=== PATIENT | male | born 1975 | race Caucasian/White ===

== ENCOUNTER 2016-12-07 10:38 | Emergency (ER) | payer SELFPAY ==
[~2016-12-07] VITALS: Ht 188 cm; Wt 172.3 kg
[~2016-12-07 10:38] MED LIST: ATV1 PO; CPR500 PO; LCTX PO; LISI-725 PO; METO25TA3 PO; MTR500 PO
[2016-12-07 10:51] VITALS: TEMP 37; Ht 188 cm; Wt 172.3 kg
[2016-12-07] MEDS ORDERED: BUSP5TAB59 PO (11:13)
[2016-12-07] MEDS ORDERED: METO1TAB69 PO (11:13)
[2016-12-07] MEDS ORDERED: LOSA1TAB PO (11:13)
[2016-12-07] MEDS ORDERED: MTR/600 PO (11:13)
[2016-12-07] MEDS ORDERED: PRLSR20 PO (11:13)
[2016-12-07] MEDS ORDERED: AMLO-110 PO (11:13)
[2016-12-07 12:28] LABS: URINE APPEARANCE CLEAR (CLEAR); URINE BILIRUBIN NEG (NEG); URINE COLOR YELLOW; URINE NITRITE NEG (NEG); URINE SPECIFIC GRAVITY 1.011 (1.000-1.030); UROBILINOGEN NEG (NEG); ZZUR CULT IF INDIC CLEAN CATCH NO
[2016-12-07 12:31] LABS: HEMATOCRIT 47.3 % (42-52); MEAN CELL VOLUME 84.3 fL (80-100); MEAN CORPUSCULAR HEMOGLOBIN 29.6 pg (25-34); MEAN CORPUSCULAR HGB CONC 35.1 g/dl (32-36); MEAN PLATELET VOLUME 10.4 fL (7.4-10.4); PLATELET COUNT 221 K/uL (130-400); RED BLOOD COUNT 5.61 M/uL (4.7-6.1); WHITE BLOOD COUNT 6.61 K/uL (4.8-10.8)
[2016-12-07 12:35] LABS: MANUAL MICROSCOPIC REQUIRED? NO; REVIEW REQ? NO
[2016-12-07 12:51] LABS: ALT/SGPT 36 U/L (12-78); BLOOD UREA NITROGEN 7 mg/dl (7-18); BUN/CREATININE RATIO 6.1 (10-20); CALCIUM 9.3 mg/dl (8.5-10.1); CARBON DIOXIDE 27 mmol/L (21-32); CHLORIDE 107 mmol/L (98-107); GLUCOSE 103 mg/dl (70-99); POTASSIUM 3.6 mmol/L (3.5-5.1); SODIUM 141 mmol/L (136-145)
[2016-12-07 12:56] LABS: ALKALINE PHOSPHATASE 109 U/L (45-117); AST/SGOT 22 U/L (15-37)
--- NOTE | 2016-12-07 15:12 | EMERGENCY ROOM VISIT NOTE ---
History Report prepared by Song: Tony Aguilar Under the Supervision of: Dr. Nicanor Hunt M.D. First contact with patient: 11:26 Chief Complaint: OTHER COMPLAINT Stated Complaint: FAST HEARTRATE/DIGESTIVE , ANXIETY Nursing Triage Summary: "I have had a racing heart, diarrhea, acid reflux, abdominal pain, and am gassy , this has been going on for a week. I have anxiety but I think this is different." Denies CP or dyspnea. History of Present Illness The patient is a 41 year old male who presents to the Emergency Room with complaints of intermittent episodes of heart palpitations beginning last week. He also complains of shakiness, and chills along with his palpitations. He denies breathing rapidly during the episodes. The patient feels that his symptoms may be related to anxiety. He was previously on Ativan for anxiety, but was switched to BuSpar about a month ago. He denies any leg pain. The patient states that he has been having occasional "burning" pain in his upper abdomen recently. He also complains of occasional diarrhea and frequent gas passing. He takes Omeprazole which often improves his GI symptoms. The patient has a history of a cholecystectomy occurring about five years ago and states that he has had these GI symptoms intermittently ever since. He notes that he has not been eating well recently. Source of History: patient Onset: Last week Quality: other (heart palpitations) Timing: intermittent Associated Symptoms: + chills, + abdominal pain ("burning" upper), + diarrhea (occasional) Note: The patient also complains of shakiness. He denies any leg pain. Review of Systems All systems have been listed, reviewed, and are negative other than those previously mentioned. Please see Additional Medical History Sheet. Past Medical & Surgical Medical Problems: (1) Anxiety (2) Diverticula of colon Family History No pertinent family history stated. Social History Smoking Status: Never Smoker Housing Status: lives with family Occupation Status: employed Current/Historical Medications Scheduled Amlodipine (Norvasc), 5 MG PO DAILY Buspirone Hcl (Buspirone Hcl), 5 MG PO BID Ibuprofen (Ibuprofen), 600 MG PO UD Losartan Potassium (Cozaar), 25 MG PO DAILY Metoprolol Succ (Toprol Xl) (Toprol-Xl ), 100 MG PO DAILY Omeprazole (Prilosec), 20 MG PO DAILY Allergies Coded Allergies: Prednisone (Unverified Allergy, Severe, INCREASED HEART RATE,ANXIETY, 12/07) Sulfa Antibiotics (Unverified Allergy, Severe, INCREASED HEARTRATE/ STOMACH SICKNESS, 12/07/16) Citalopram (Unverified Allergy, Mild, UNK, 12/07/16) No Known Allergies (Unverified , UNKNOWN, 01/06/09) Physical Exam Vital Signs Date Time Temp Pulse Resp B/P (MAP) Pulse Ox O2 Delivery O2 Flow Rate FiO2 12/07/16 15:39 63 20 146/93 95 12/07/16 13:18 63 20 151/90 95 Room Air 12/07/16 12:24 87 12/07/16 11:39 84 20 149/99 96 Room Air 12/07/16 10:51 37.0 93 22 201/114 97 Room Air Physical Exam GENERAL: Patient awake, alert, oriented x 3. Patient follows commands. Patient does not appear toxic. Patient is adequately hydrated and well- nourished. SKIN: No erythema, pallor, cyanosis or rash HEENT: Normal head, pupils equal, reactive to light and accommodation. Slight injection of the left sclera. Ears normal. Oral cavity and posterior pharynx appear normal. Neck: Without adenopathy, no neck vein distention. LUNGS: Clear to auscultation. No wheezes, no rales, no rhonchi. HEART: No murmurs. No gallops. No rubs ABDOMEN: Obese. No masses, no rebound, no hepatomegaly or splenomegaly. EXTREMITIES: No signs of trauma. No pedal or pretibial edema. No calf or thigh tenderness. NEUROLOGIC: Cranial nerves II-XII within normal limits. No gross motor sensory function deficits. Medical Decision & Procedures Laboratory Results 12/07/16 12:10 12/07/16 12:10 Test 12/07/16 12:10 Red Blood Count 5.61 M/uL (4.7-6.1) Mean Corpuscular Volume 84.3 fL (80-100) Mean Corpuscular Hemoglobin 29.6 pg (25-34) Mean Corpuscular Hemoglobin Concent 35.1 g/dl (32-36) RDW Standard Deviation 40.0 fL (36.4-46.3) RDW Coefficient of Variation 13.0 % (11.5-14.5) Mean Platelet Volume 10.4 fL (7.4-10.4) Urine Color YELLOW Urine Appearance CLEAR (CLEAR) Urine pH 8.0 (4.5-7.5) Urine Specific [place] 1.011 (1.000-1.030) Urine Protein NEG (NEG) Urine Glucose (UA) NEG (NEG) Urine Ketones NEG (NEG) Urine Occult Blood NEG (NEG) Urine Nitrite NEG (NEG) Urine Bilirubin NEG (NEG) Urine Urobilinogen NEG (NEG) Urine Leukocyte Esterase NEG (NEG) Anion Gap 7.0 mmol/L (3-11) Est Creatinine Clear Calc Drug Dose 149.3 ml/min Estimated GFR () 96.8 Estimated GFR (Non- 83.5 BUN/Creatinine Ratio 6.1 (10-20) Calcium Level 9.3 mg/dl (8.5-10.1) Total Bilirubin 1.0 mg/dl (0.2-1) Aspartate Amino Transf (AST/SGOT) 22 U/L (15-37) Alanine Aminotransferase (ALT/SGPT) 36 U/L (12-78) Alkaline Phosphatase 109 U/L (45-117) Troponin I < 0.015 ng/ml (0-0.045) Total Protein 8.3 gm/dl (6.4-8.2) Albumin 4.1 gm/dl (3.4-5.0) Globulin 4.2 gm/dl (2.5-4.0) Albumin/Globulin Ratio 1.0 (0.9-2) Laboratory results as stated above per my review. ECG Indication: abdominal pain Rate (beats per minute): 93 Rhythm: sinus bradycardia Findings: no acute ischemic change, no ectopy, other (Normal axis. ) ED Course 1142: Past medical records reviewed. The patient was evaluated in room C5. A complete history and physical examination was performed. 1503: Upon reevaluation, the patient appeared to have improvement of his symptoms. I discussed today's findings with him. He verbalized agreement of the treatment plan. The patient was discharged home. Medical Decision Nurses notes reviewed. Medical history sheet reviewed. Differential diagnosis includes but is not limited to: anxiety, metabolic disorder, arrhythmia, and diverticulitis. Multiple labs were obtained. Please see above. The patient was observed here in the ED for approximately 3 hours and felt significantly better. He received no additional medication. The patient does have an underlying history of diverticulitis. He currently has no diarrhea. He does not have an acute abdomen or significant tenderness at this time. Anxiety is a significant portion of the patient's problem. The patient will double up on his omeprazole but will need to follow-up with his family physician and possibly GI for colonoscopy. Medication Reconcilliation Current Medication List: was personally reviewed by me Blood Pressure Screening Patient's blood pressure: Elevated blood pressure Blood pressure disposition: Referred to PCP Impression Primary Impression: Spasm of bowel Additional Impression: Anxiety Scribe Attestation The scribe's documentation has been prepared under my direction and personally reviewed by me in its entirety. I confirm that the note above accurately reflects all work, treatment, procedures, and medical decision making performed by me. Departure Information Dispostion Home / Self-Care Referrals No Doctor, Assigned (PCP) Patient Instructions My [facility] [employer] Additional Instructions Double your omeprazole dose daily. Follow-up with your family physician within the next 2 weeks and have your blood pressure rechecked. You may require a colonoscopy in the future. Keep a food diary for at least 1 week. Problem Qualifiers
[2016-12-07 15:39] VITALS: BP 146/93; PULSE 63; O2SAT 95
== END 2016-12-07 15:40 | disposition home or self-care (01) ==
LOC: C.EDB 10:39 → C.EDC 15:40
DX: K58.9 Irritable bowel syndrome, unspecified (principal); F41.9 Anxiety disorder, unspecified; K57.30 Diverticulosis of large intestine without perforation or abscess without bleeding

== ENCOUNTER 2016-12-19 09:55 | Emergency (ER) | payer OTHER ==
[~2016-12-19] VITALS: Ht 188 cm; Wt 166.6 kg
[~2016-12-19 09:55] MED LIST changes: +AMLO-110 PO; -ATV1 PO; +BUSP5TAB59 PO; -CPR500 PO; -LCTX PO; -LISI-725 PO; +LOSA1TAB PO; +METO1TAB69 PO; -METO25TA3 PO; +MTR/600 PO; -MTR500 PO; +PRLSR20 PO
[2016-12-19 09:58] VITALS: TEMP 37; Ht 188 cm; Wt 166.6 kg
[2016-12-19 10:10] VITALS: O2SAT 98
[2016-12-19] MEDS ORDERED: SODIUM CHLORIDE 0.9% 1000ML 1,000 ML IV STA (10:14)
[2016-12-19] MEDS ORDERED: FLUO20CA35 PO (10:21)
[2016-12-19] MEDS ORDERED: ZNTT/150 PO (10:21)
[2016-12-19] MEDS ORDERED: AMLO-110 PO (10:21)
[2016-12-19] MEDS ORDERED: METO1TAB69 PO (10:21)
[2016-12-19] MEDS ORDERED: LOSA1TAB38 PO (10:21)
--- NOTE | 2016-12-19 10:22 | EMERGENCY ROOM VISIT NOTE ---
History Report prepared by Song: Nyla Hicks Under the Supervision of: Dr. Jaun Wilson M.D. First contact with patient: 10:07 Chief Complaint: HYPERTENSION Stated Complaint: HIGH BLOOD PRESSURE, NAUSEA X 3 WEEKS History of Present Illness The patient is a 41 year old male who presents to the Emergency Room with complaints of persistent diarrhea for the past three weeks. He currently rates his discomfort as a 5/10 in severity. The patient states that for the past three weeks he has been experiencing diarrhea and gas. He states that over the past week he has lost 9 pounds and states that since October he has lost 40 pounds. The patient states that he was here two weeks ago for his symptoms. He states that since his illness began he has noticed an increase in his blood pressure. The patient states that for the past several months he has been on 100 mg of extended release Metoprolol. He states that he has been having 3-4 diarrhea bowel movements every day. The patient states that yesterday he had blood work and a stool sample taken yesterday at his PCP's office and states that he was placed on Ranitidine. He states that he has been feeling weak. Source of History: patient Onset: three weeks Position: other (global) Symptom Intensity: 5/10 Quality: other (diarrhea) Timing: other (persistent) Associated Symptoms: + weakness Note: Associated Symptoms: 40 pound weight loss, gas, increase in blood pressure Review of Systems See HPI for pertinent positives & negatives. A total of 10 systems reviewed and were otherwise negative. Past Medical & Surgical Medical Problems: (1) Anxiety (2) Diverticula of colon (3) Hypertension (4) Kidney stone Surgical Problems: (1) Hx of cholecystectomy (2) Previous back surgery Family History Diabetes mellitus Gallbladder disease Heart disease Hypertension Kidney disease Kidney stones Social History Smoking Status: Never Smoker Smokeless Tobacco Use: Yes Alcohol Use: none Marital Status: single Housing Status: lives with family Occupation Status: employed Current/Historical Medications Scheduled Amlodipine (Norvasc), 5 MG PO DAILY Amlodipine (Norvasc), 10 MG PO DAILY Fluoxetine (Prozac), 20 MG PO DAILY Losartan Potassium (Cozaar), 100 MG PO DAILY Metoprolol Succ (Toprol Xl) (Toprol-Xl ), 100 MG PO DAILY Ranitidine (Zantac), 150 MG PO BID Allergies Coded Allergies: Prednisone (Unverified Allergy, Severe, INCREASED HEART RATE,ANXIETY, ) Sulfa Antibiotics (Unverified Allergy, Severe, INCREASED HEARTRATE/ STOMACH SICKNESS, 12/19/16) Citalopram (Unverified Allergy, Mild, UNK, 12/19/16) Physical Exam Vital Signs Date Time Temp Pulse Resp B/P (MAP) Pulse Ox O2 Delivery O2 Flow Rate FiO2 12/19/16 12:47 59 20 159/94 94 12/19/16 12:22 53 12/19/16 11:09 73 18 184/104 98 Room Air 12/19/16 10:10 98 Room Air 12/19/16 10:08 81 12/19/16 09:58 37.0 83 18 211/143 97 Room Air Physical Exam GENERAL: Patient is a healthy-appearing well-nourished male HEAD: Normocephalic atraumatic EYES: Ocular movements intact pupils equal and react to light OROPHARYNX mucous membranes are moist no exudates present no erythema or edema present NECK: Supple no nuchal rigidity CHEST: Good equal expansion LUNGS: Clear and equal to auscultation CARDIAC: Normal S1 and S2 ABDOMEN: Soft nontender no guarding BACK: No CVA tenderness EXTREMITIES: No pain upon palpation normal muscle strength in all groups no clubbing cyanosis or edema NEURO: Patient is following commands and answering questions appropriately. Alert and oriented x3 Cranial Nerves 2-12 grossly intact Medical Decision & Procedures ER Provider Diagnostic Interpretation: Radiology results as stated below per my review and radiologist interpretation: HEAD CT NONCONTRAST CT DOSE: 729.78 mGycm HISTORY: Hypertension. TECHNIQUE: Multiaxial CT images of the head were performed without the use of intravenous contrast. Automated exposure control was utilized for this study. A dose lowering technique was utilized adhering to the principles of ALARA. Comparison: None. Findings: Subcentimeter retention cyst within the left maxillary sinus. The mastoid air cells are clear. The calvarium and skull base are intact. The ventricles and sulci are within normal limits. There is no mass, hematoma, midline shift, or acute infarct. Impression: No acute intracranial abnormality. Electronically signed by: Chaka Cordero M.D. 12/19/2016 11:13 AM Dictated Date/Time: 12/19/2016 11:06 AM CHEST ONE VIEW PORTABLE HISTORY: severe hypertension COMPARISON: Chest 01/06/2009. FINDINGS: A 6 mm nodular density within the base of the left lower lobe favors a calcified granuloma. The lungs are otherwise clear. No pleural effusions. No pneumothorax. The heart is normal in size. IMPRESSION: No acute process. Electronically signed by: Chaka Cordero M.D. 12/19/2016 10:59 AM Dictated Date/Time: 12/19/2016 10:[address] ABD/PELVIS IV CONTRAST ONLY CLINICAL HISTORY: Diffuse abdominal pain and diarrhea. COMPARISON STUDY: None. TECHNIQUE: Following the IV administration of 94 mL of Optiray-320, CT scan of the abdomen and pelvis was performed from the lung bases to the proximal femurs. Images are reviewed in the axial, sagittal, and coronal planes. IV contrast was administered without complication. A dose lowering technique was utilized adhering to the principles of ALARA. CT DOSE: 1390.79 mGycm FINDINGS: Lower chest: The heart is normal in size and configuration, without pericardial effusion. The lung bases and pleural spaces are clear. Liver: The contrast-enhanced liver is normal in size, contour, and attenuation. There is no intrahepatic biliary ductal dilatation. The hepatic veins and portal veins are patent. Gallbladder: Surgically absent Spleen: Normal in size and attenuation. Pancreas: Unremarkable. Adrenal glands: Unremarkable. Kidneys: There is symmetric renal cortical enhancement. The kidneys are normal in size without hydronephrosis. Bowel: There are no transition zones indicate bowel obstruction. There is no acute diverticulitis. The appendix appears normal. Peritoneum: There is no intraperitoneal free air or abdominal ascites. Vasculature: The abdominal aorta is normal in course and caliber. Adenopathy: None. Pelvic viscera: The bladder, and pelvic viscera are unremarkable. Skeletal structures: No destructive osseous lesions are seen. IMPRESSION: 1. No acute intra-abdominal or pelvic findings 2. No evidence of bowel obstruction. No evidence of free air 3. Normal appendix. No evidence of diverticulitis. Electronically signed by: Vito Baxter M.D. 12/19/2016 11:08 AM Dictated Date/Time: 12/19/2016 11:06 AM Laboratory Results 12/19/16 10:10 Red Blood Count 5.80, Mean Corpuscular Volume 84.5, Mean Corpuscular Hemoglobin 30.7, Mean Corpuscular Hemoglobin Concent 36.3, Mean Platelet Volume 10.8, Neutrophils (%) (Auto) 70.0, Lymphocytes (%) (Auto) 21.7, Monocytes (%) (Auto) 7.3, Eosinophils (%) (Auto) 0.6, Basophils (%) (Auto) 0.3, Neutrophils # (Auto) 4.99, Lymphocytes # (Auto) 1.55, Monocytes # (Auto) 0.52, Eosinophils # (Auto) 0.04, Basophils # (Auto) 0.02 12/19/16 10:10 Test 12/19/16 10:10 12/19/16 10:16 12/19/16 10:27 12/19/16 10:45 White Blood Count 7.13 K/uL (4.8-10.8) Red Blood Count 5.80 M/uL (4.7-6.1) Hemoglobin 17.8 g/dL (14.0-18.0) Hematocrit 49.0 % (42-52) Mean Corpuscular Volume 84.5 fL (80-100) Mean Corpuscular Hemoglobin 30.7 pg (25-34) Mean Corpuscular Hemoglobin Concent 36.3 g/dl (32-36) Platelet Count 243 K/uL (130-400) Mean Platelet Volume 10.8 fL (7.4-10.4) Neutrophils (%) (Auto) 70.0 % Lymphocytes (%) (Auto) 21.7 % Monocytes (%) (Auto) 7.3 % Eosinophils (%) (Auto) 0.6 % Basophils (%) (Auto) 0.3 % Neutrophils # (Auto) 4.99 K/uL (1.4-6.5) Lymphocytes # (Auto) 1.55 K/uL (1.2-3.4) Monocytes # (Auto) 0.52 K/uL (0.11-0.59) Eosinophils # (Auto) 0.04 K/uL (0-0.5) Basophils # (Auto) 0.02 K/uL (0-0.2) RDW Standard Deviation 39.7 fL (36.4-46.3) RDW Coefficient of Variation 13.0 % (11.5-14.5) Immature Granulocyte % (Auto) 0.1 % Immature Granulocyte # (Auto) 0.01 K/uL (0.00-0.02) Prothrombin Time 10.5 SECONDS (9.0-12.0) Prothromb Time International Ratio 1.0 (0.9-1.1) Activated Partial Thromboplast Time 29.0 SECONDS (21.0-31.0) Partial Thromboplastin Ratio 1.1 Est Creatinine Clear Calc Drug Dose 131.0 ml/min Estimated GFR () 84.6 Estimated GFR (Non- 73.0 BUN/Creatinine Ratio 6.6 (10-20) Calcium Level 9.2 mg/dl (8.5-10.1) Total Bilirubin 1.2 mg/dl (0.2-1) Direct Bilirubin 0.2 mg/dl (0-0.2) Aspartate Amino Transf (AST/SGOT) 32 U/L (15-37) Alanine Aminotransferase (ALT/SGPT) 51 U/L (12-78) Alkaline Phosphatase 118 U/L (45-117) Total Creatine Kinase 101 U/L (39-308) Creatine Kinase MB < 0.5 ng/ml (0.5-3.6) Troponin I < 0.015 ng/ml (0-0.045) Total Protein 8.6 gm/dl (6.4-8.2) Albumin 4.3 gm/dl (3.4-5.0) Lipase 104 U/L (73-393) Thyroid Stimulating Hormone (TSH) 0.657 uIu/ml (0.300-4.500) Creatine Kinase MB Ratio (0-3.0) Bedside Hemoglobin 17.3 g/dl (14.0-18.0) Bedside Hematocrit 51 % (42-52) Bedside Sodium 142 mEq/L (135-144) Bedside Potassium 3.7 mEq/L (3.3-5.0) Bedside Chloride 104 mEq/L (101-112) Bedside Total CO2 27 mEq/l (24-31) Anion Gap 16.0 mmol/L (16-25) Bedside Blood Urea Nitrogen 7 mg/dl (7-18) Bedside Creatinine 1.1 mg/dl (0.6-1.3) Bedside Glucose (other) 95 mg/dl (70-99) Bedside Ionized Calcium (Uziel) 1.20 mmol/l (1.12-1.32) Urine Color YELLOW Urine Appearance CLEAR (CLEAR) Urine pH 6.5 (4.5-7.5) Urine Specific [place] 1.014 (1.000-1.030) Urine Protein NEG (NEG) Urine Glucose (UA) NEG (NEG) Urine Ketones NEG (NEG) Urine Occult Blood TRACE (NEG) Urine Nitrite NEG (NEG) Urine Bilirubin NEG (NEG) Urine Urobilinogen NEG (NEG) Urine Leukocyte Esterase NEG (NEG) Urine WBC (Auto) 1-5 /hpf (0-5) Urine RBC (Auto) 0-4 /hpf (0-4) Urine Hyaline Casts (Auto) 0 /lpf (0-5) Urine Epithelial Cells (Auto) 0-5 /lpf (0-5) Urine Bacteria (Auto) NEG (NEG) Date/Time Source Procedure Growth Status 12/19/16 10:45 Stool C.difficile Toxin B Gene (PCR) - Final No C. difficile toxin B gene detected Complete Labs reviewed by ED physician. Medications Administered Medications (Trade) Dose Ordered Sig/Steve Route Start Time Stop Time Status Last Admin Dose Admin Sodium Chloride 1,000 ml @ 999 mls/hr Q1H1M STAT IV 12/19/16 10:14 12/19/16 11:14 DC 12/19/16 10:32 999 MLS/HR Potassium Chloride (Klor-Con M10) 40 meq NOW STAT PO 12/19/16 11:11 12/19/16 11:12 DC 12/19/16 11:29 40 MEQ Cholestyramine Resin (Questran Powder Light) 4 gm NOW STAT PO 12/19/16 12:17 12/19/16 12:18 DC 12/19/16 12:42 4 GM ECG Indication: other (hypertension) Rate (beats per minute): 80 Rhythm: normal sinus Findings: no acute ischemic change, no ectopy ED Course 1009: Past medical records reviewed. The patient was evaluated in room A11B. A complete history and physical examination was performed. 1014: Ordered Sodium Chloride 1000 ml @ 999 mls/hr IV. 1111: Ordered Potassium Chloride 40 meq PO. 1217: Ordered Cholestyramine Resin 4 gm PO. 1220: I reevaluated the patient and he is resting comfortably. I discussed the exam findings with him and I discussed the treatment plan. He verbalized complete understanding and agreement. He is ready to go home. Medical Decision Differential diagnosis: Etiologies such as benign hypertension, hypertensive emergency, cardiovascular pathology, pheochromocytoma, electrolyte abnormality, renal disease, endorgan damage, as well as others were entertained. This is a 41-year-old male who presents emergency department complaining of gastroenteritis symptoms and has been ongoing for 3 weeks. In addition the patient has an elevation in his blood pressure. Based on the multiple complaints, the patient was sent for CAT scan of the head as well as the abdomen pelvis. Both are within normal limits in the patient has normal CBC and renal profile. His blood pressure is elevated. I feel I can increase his amlodipine dose however I stressed the need for follow-up with gastroenterology. The patient was in the emergency department for a total of 4 hours however he was unable to provide a stool sample. Medication Reconcilliation Current Medication List: was personally reviewed by me Blood Pressure Screening Patient's blood pressure: Elevated blood pressure Blood pressure disposition: Referred to PCP Impression Primary Impression: Hypertension Additional Impression: Diarrhea Scribe Attestation The scribe's documentation has been prepared under my direction and personally reviewed by me in its entirety. I confirm that the note above accurately reflects all work, treatment, procedures, and medical decision making performed by me. Departure Information Dispostion Home / Self-Care Prescriptions Amlodipine (Norvasc) 10 Mg Tab 10 MG PO DAILY for 10 Days, #10 TAB Prov: Juan Wilson MD 12/19/16 Referrals No Doctor, Assigned (PCP) Daryl Souza, D.O. Forms HOME CARE DOCUMENTATION FORM, IMPORTANT VISIT INFORMATION, WORK / SCHOOL INSTRUCTIONS Patient Instructions ED Diarrhea Viral, ED Vomiting Diarrhea Nonspecific Ad, Hypertension Control, My [facility] Additional Instructions Follow up with Dr Zepeda's office You were found to have an elevated blood pressure today (>120 sytolic or >90 diastolic). Per medicare guidelines, you need to follow up with this blood pressure screening with your Primary Care Physician (PCP). For a new PCP call [phone]. You have been examined and treated today on an emergency basis only. This is not a substitute for, or an effort to provide, complete comprehensive medical care. It is impossible to recognize and treat all injuries or illnesses in a single emergency department visit. It is therefore important that you follow up closely with Dr Souza. Call as soon as possible for an appointment. Thank you for your time and consideration. I look forward to speaking with you again soon. Please don't hesitate to call us if you have any questions. Problem Qualifiers Primary Impression: Hypertension Hypertension type: unspecified Qualified Codes: I10 - Essential (primary) hypertension Additional Impression: Diarrhea Diarrhea type: unspecified type Qualified Codes: R19.7 - Diarrhea, unspecified
[2016-12-19] MEDS ORDERED: OPTIRAY 320 IV PRN (10:30)
[2016-12-19 10:37] LABS: BASO % 0.3 %; BASO ABS # 0.02 K/uL (0-0.2); COMPLETE YES; EOS % 0.6 %; IG% 0.1 %; LYMPH % 21.7 %; LYMPH ABS # 1.55 K/uL (1.2-3.4); MEAN CELL VOLUME 84.5 fL (80-100); MEAN CORPUSCULAR HEMOGLOBIN 30.7 pg (25-34); MEAN CORPUSCULAR HGB CONC 36.3 g/dl (32-36); MEAN PLATELET VOLUME 10.8 fL (7.4-10.4); MONO % 7.3 %; PLATELET COUNT 243 K/uL (130-400); WHITE BLOOD COUNT 7.13 K/uL (4.8-10.8)
[2016-12-19 10:41] LABS: ISTAT CREATININE 1.1 mg/dl (0.6-1.3); ISTAT HEMOGLOBIN 17.3 g/dl (14.0-18.0); ISTAT IONIZED CALCIUM 1.2 mmol/l (1.12-1.32)
[2016-12-19 10:46] LABS: PARTIAL THROMBOPLASTIN RATIO 1.1; PROTHROMBIN TIME (PATIENT) 10.5 SECONDS (9.0-12.0)
[2016-12-19 10:58] LABS: ALT/SGPT 51 U/L (12-78); AST/SGOT 32 U/L (15-37); BLOOD UREA NITROGEN 8 mg/dl (7-18); BUN/CREATININE RATIO 6.6 (10-20); CALCIUM 9.2 mg/dl (8.5-10.1); CARBON DIOXIDE 27 mmol/L (21-32); CHLORIDE 107 mmol/L (98-107); CREATININE 1.23 mg/dl (0.60-1.40); GLUCOSE 90 mg/dl (70-99); POTASSIUM 3.6 mmol/L (3.5-5.1); SODIUM 139 mmol/L (136-145)
--- NOTE | 2016-12-19 11:00 | DIAGNOSTIC IMAGING REPORT ---
CHEST ONE VIEW PORTABLE HISTORY: severe hypertension COMPARISON: Chest 01/06/2009. FINDINGS: A 6 mm nodular density within the base of the left lower lobe favors a calcified granuloma. The lungs are otherwise clear. No pleural effusions. No pneumothorax. The heart is normal in size. IMPRESSION: No acute process. Electronically signed by: Chaka Cordero M.D. 12/19/2016 10:59 AM Dictated Date/Time: 12/19/2016 10:57 AM
[2016-12-19 11:01] LABS: URINE APPEARANCE CLEAR (CLEAR); URINE BILIRUBIN NEG (NEG); URINE COLOR YELLOW; URINE EPITHELIAL CELL AUTO 0-5 /lpf (0-5); URINE NITRITE NEG (NEG); URINE PH 6.5 (4.5-7.5); URINE SPECIFIC GRAVITY 1.014 (1.000-1.030); UROBILINOGEN NEG (NEG)
[2016-12-19 11:03] LABS: MANUAL MICROSCOPIC REQUIRED? NO; REVIEW REQ? NO
[2016-12-19 11:06] LABS: ALKALINE PHOSPHATASE 118 U/L (45-117); THYROID STIMULATING HORMONE 0.657 uIu/ml (0.300-4.500)
--- NOTE | 2016-12-19 11:10 | DIAGNOSTIC IMAGING REPORT ---
CT ABD/PELVIS IV CONTRAST ONLY CLINICAL HISTORY: Diffuse abdominal pain and diarrhea. COMPARISON STUDY: None. TECHNIQUE: Following the IV administration of 94 mL of Optiray-320, CT scan of the abdomen and pelvis was performed from the lung bases to the proximal femurs. Images are reviewed in the axial, sagittal, and coronal planes. IV contrast was administered without complication. A dose lowering technique was utilized adhering to the principles of ALARA. CT DOSE: 1390.79 mGycm FINDINGS: Lower chest: The heart is normal in size and configuration, without pericardial effusion. The lung bases and pleural spaces are clear. Liver: The contrast-enhanced liver is normal in size, contour, and attenuation. There is no intrahepatic biliary ductal dilatation. The hepatic veins and portal veins are patent. Gallbladder: Surgically absent Spleen: Normal in size and attenuation. Pancreas: Unremarkable. Adrenal glands: Unremarkable. Kidneys: There is symmetric renal cortical enhancement. The kidneys are normal in size without hydronephrosis. Bowel: There are no transition zones indicate bowel obstruction. There is no acute diverticulitis. The appendix appears normal. Peritoneum: There is no intraperitoneal free air or abdominal ascites. Vasculature: The abdominal aorta is normal in course and caliber. Adenopathy: None. Pelvic viscera: The bladder, and pelvic viscera are unremarkable. Skeletal structures: No destructive osseous lesions are seen. IMPRESSION: 1. No acute intra-abdominal or pelvic findings 2. No evidence of bowel obstruction. No evidence of free air 3. Normal appendix. No evidence of diverticulitis. Electronically signed by: Vito Baxter M.D. 12/19/2016 11:08 AM Dictated Date/Time: 12/19/2016 11:06 AM
[2016-12-19] MEDS ORDERED: POTASSIUM CHLORIDE 10 MEQ TABCR PO STA (11:11)
--- NOTE | 2016-12-19 11:14 | DIAGNOSTIC IMAGING REPORT ---
HEAD CT NONCONTRAST CT DOSE: 729.78 mGycm HISTORY: Hypertension. TECHNIQUE: Multiaxial CT images of the head were performed without the use of intravenous contrast. Automated exposure control was utilized for this study. A dose lowering technique was utilized adhering to the principles of ALARA. Comparison: None. Findings: Subcentimeter retention cyst within the left maxillary sinus. The mastoid air cells are clear. The calvarium and skull base are intact. The ventricles and sulci are within normal limits. There is no mass, hematoma, midline shift, or acute infarct. Impression: No acute intracranial abnormality. Electronically signed by: Chaka Cordero M.D. 12/19/2016 11:13 AM Dictated Date/Time: 12/19/2016 11:06 AM
[2016-12-19] MEDS ORDERED: CHOLESTYRAMINE LIGHT 4 GM PKT PO STA (12:17)
[2016-12-19] MEDS ORDERED: AMLO-114 PO (12:19)
[2016-12-19 12:47] VITALS: BP 159/94; PULSE 59; O2SAT 94
[2016-12-23 13:17] LABS: NOROVIRUS RNA** TC 19098X NOT DETECTED; O&P GIARDIA AG NOT DETECTED (NOT DETECTED)
== END 2016-12-19 12:48 | disposition home or self-care (01) ==
LOC: C.EDB 09:56 → C.EDA 12:48
DX: I10 Essential (primary) hypertension (principal); R19.7 Diarrhea, unspecified; F41.9 Anxiety disorder, unspecified; Z87.442 Personal history of urinary calculi; Z90.49 Acquired absence of other specified parts of digestive tract; Z83.3 Family history of diabetes mellitus; Z82.49 Family history of ischemic heart disease and other diseases of the circulatory system; Z84.1 Family history of disorders of kidney and ureter; Z79.899 Other long term (current) drug therapy

== ENCOUNTER → 2016-12-31 | Day surgery (SDC) | payer OTHER ==
[2016-12-30 11:58] VITALS: Ht 188 cm; Wt 163.6 kg
[~2016-12-31] VITALS: Ht 188 cm; Wt 163.6 kg
[~2016-12-31] MED LIST changes: -AMLO-110 PO; +ATV/1 PO; -BUSP5TAB59 PO; +DICY10CA12 PO; +EpHEDrine SULFATE 50MG/5ML SYR ONE; +FENTANYL CITRATE INJ 50 MCG/1 ML 2 ML VIAL ONE; +HYDR12.55 PO; +LIDOCAINE HCL 2% 2 ML VIAL (20MG/ML) ONE; -LOSA1TAB PO; +LOSA1TAB38 PO; +METO100T44 PO; -METO1TAB69 PO; +MIDAZOLAM HCL 1 MG/ML 2ML VIAL ONE; -MTR/600 PO; -PRLSR20 PO; +PROPOFOL IV EMULSION 10 MG/ML 20 ML VIAL IV ONE; +SODIUM CHLORIDE 0.9% 500ML 500 ML IV ONE
--- NOTE | 2016-12-31 12:41 | Endo History and Physical ---
History & Physical Date of Service: Dec 31, 2016. Chief Complaint: reflux,chronic diarrhea Referring Physician: Dr. Daryl Souza History of Present Illness Patient with chronic diarrhea and dyspepsia, planned for EGD and colonoscopy. Past Surgical History Hx Cardiac Surgery: No Hx Internal Defibrillator: No Hx Pacemaker: No Hx Abdominal Surgery: Yes (KARAN) Hx of Implantable Prosthesis: No Hx Post-Op Nausea and Vomiting: No Hx Cancer Surgery: No Hx Thoracic Surgery: No Hx Orthopedic: Yes (LUMBAR FUSION) Hx Urinary Tract Surgery: No Family History Polyp, IBD Social History Smoking Status: Never Smoker Hx Substance Use: No Hx Alcohol Use: No Allergies Coded Allergies: Prednisone (Verified Allergy, Severe, INCREASED HEART RATE,ANXIETY, ) Sulfa Antibiotics (Verified Allergy, Severe, INCREASED HEARTRATE/STOMACH SICKNESS, 12/31/16) Citalopram (Verified Allergy, Mild, UNK, 12/31/16) Current Medications Reported Home Medications Medications Dose Route/Sig Max Daily Dose Days Date Category Ativan (Lorazepam) 1 Mg Tab 1 Mg PO Q6H 12/31/16 Reported Toprol-Xl (Metoprolol Succinate) 100 Mg Tabcr 100 Mg PO DAILY AT 1600 12/30/16 Reported Hydrochlorothiazide 12.5 Mg Tab 1 Tab PO DAILY AT 1600 90 12/30/16 Reported Dicyclomine Hcl 10 Mg Cap 1 Cap PO BID 30 12/30/16 Reported Cozaar (Losartan Potassium) 100 Mg Tab 100 Mg PO QAM 12/19/16 Reported Vital Signs Weight (Kilograms): 163.64 Height (Feet): 6 Height (Inches): 2 Date Time Temp Pulse Resp B/P (MAP) Pulse Ox O2 Delivery O2 Flow Rate FiO2 12/31/16 12:20 37.2 86 20 118/89 (99) 96 Room Air Physical Exam General Appearance: no apparent distress Respiratory/Chest: Auscultation: breath sounds normal Cardiovascular: Heart Auscultation: RRR Abdomen: Inspection & Palpation: soft, non-distended Assessment and Plan EGD and colonoscopy. patient was explained the risk and benefit and agreed.
--- NOTE | 2016-12-31 13:39 | GI REPORT ---
Procedure Date: 12/31/2016 12:20 PM Procedure: Upper GI endoscopy Indications: Dyspepsia, Heartburn, Suspected gastro-esophageal reflux disease Medicines: Sedation Required Anesthesia Staff Assistance Complications: No immediate complications. Estimated Blood Loss: Estimated blood loss: none. Procedure: Pre-Anesthesia Assessment: - Prior to the procedure, a History and Physical was performed, and patient medications and allergies were reviewed. The patient is competent. The risks and benefits of the procedure and the sedation options and risks were discussed with the patient. All questions were answered and informed consent was obtained. Patient identification and proposed procedure were verified by the physician and the nurse in the procedure room. Mental Status Examination: alert and oriented. Airway Examination: normal oropharyngeal airway and neck mobility. Respiratory Examination: clear to auscultation. CV Examination: normal. ASA Grade Assessment: II - A patient with mild systemic disease. After reviewing the risks and benefits, the patient was deemed in satisfactory condition to undergo the procedure. The anesthesia plan was to use monitored anesthesia care (MAC). Immediately prior to administration of medications, the patient was re-assessed for adequacy to receive sedatives. The heart rate, respiratory rate, oxygen saturations, blood pressure, adequacy of pulmonary ventilation, and response to care were monitored throughout the procedure. The physical status of the patient was re-assessed after the procedure. After obtaining informed consent, the endoscope was passed under direct vision. Throughout the procedure, the patient's blood pressure, pulse, and oxygen saturations were monitored continuously. The scope was introduced through the mouth, and advanced to the second part of duodenum. The upper GI endoscopy was accomplished without difficulty. The patient tolerated the procedure well. Findings: One tongue of salmon-colored mucosa was present. The maximum longitudinal extent of these esophageal mucosal changes was 2 cm in length. Biopsies were taken with a cold forceps for histology. Verification of patient identification for the specimen was done by the physician and nurse using the patient's name and date. Estimated blood loss was minimal. The entire examined stomach was normal. Biopsies were taken with a cold forceps for Helicobacter pylori testing. The duodenal bulb and 2nd part of the duodenum were normal. Biopsies were taken with a cold forceps for histology. One non-bleeding superficial duodenal ulcer was found in the duodenal bulb. The lesion was 5 mm in largest dimension. Biopsies were taken with a cold forceps for histology. Impression: - [place]-colored mucosa suspicious for short-segment Friedman's esophagus. Biopsied. - Normal stomach. Biopsied. - Normal duodenal bulb and 2nd part of the duodenum. Biopsied. - One non-bleeding superficial duodenal ulcer. Biopsied. Recommendation: - Discharge patient to home. - Await pathology results. - Follow an antireflux regimen. - Use Prilosec (omeprazole) 40 mg PO daily. - Repeat the upper endoscopy for surveillance based on pathology results. - Return to GI clinic as previously scheduled. Ricci An MD 12/31/2016 1:38:43 PM This report has been signed electronically. Note Initiated On: 12/31/2016 12:20 PM I attest to the content of the Intraoperative Record and orders documented therein, exceptions below
--- NOTE | 2016-12-31 13:42 | Anesthesiology Progress Note ---
Anesthesia Post Op Note Date & Time Dec 31, 2016 at 13:42 Vital Signs Pain Intensity: 0 Vital Signs Past 12 Hours Date Time Temp Pulse Resp B/P (MAP) Pulse Ox O2 Delivery O2 Flow Rate FiO2 12/31/16 12:20 37.2 86 20 118/89 (99) 96 Room Air Notes Mental Status: alert / awake / arousable, participated in evaluation Pt Amnestic to Procedure: Yes Nausea / Vomiting: adequately controlled Pain: adequately controlled Airway Patency, RR, SpO2: stable & adequate BP & HR: stable & adequate Hydration State: stable & adequate Anesthetic Complications: no major complications apparent
--- NOTE | 2016-12-31 13:44 | GI REPORT ---
Procedure Date: 12/31/2016 1:07 PM Procedure: Colonoscopy Indications: Chronic diarrhea Medicines: Monitored Anesthesia Care Complications: No immediate complications. Estimated Blood Loss: Estimated blood loss: none. Procedure: Pre-Anesthesia Assessment: - Prior to the procedure, a History and Physical was performed, and patient medications and allergies were reviewed. The patient is competent. The risks and benefits of the procedure and the sedation options and risks were discussed with the patient. All questions were answered and informed consent was obtained. Patient identification and proposed procedure were verified by the physician and the nurse in the procedure room. Mental Status Examination: alert and oriented. Airway Examination: normal oropharyngeal airway and neck mobility. Respiratory Examination: clear to auscultation. CV Examination: normal. ASA Grade Assessment: II - A patient with mild systemic disease. After reviewing the risks and benefits, the patient was deemed in satisfactory condition to undergo the procedure. The anesthesia plan was to use monitored anesthesia care (MAC). Immediately prior to administration of medications, the patient was re-assessed for adequacy to receive sedatives. The heart rate, respiratory rate, oxygen saturations, blood pressure, adequacy of pulmonary ventilation, and response to care were monitored throughout the procedure. The physical status of the patient was re-assessed after the procedure. After I obtained informed consent, the scope was passed under direct vision. Throughout the procedure, the patient's blood pressure, pulse, and oxygen saturations were monitored continuously. The scope was introduced through the anus and advanced to the terminal ileum. The colonoscopy was performed without difficulty. The patient tolerated the procedure well. The quality of the bowel preparation was good. Scope insertion time was 4 minutes. Scope withdrawal time was 10 minutes. The total duration of the procedure was 14 minutes. Findings: The perianal and digital rectal examinations were normal. The terminal ileum appeared normal. A 12 mm polyp was found in the recto-sigmoid colon. The polyp was sessile. The polyp was removed with a hot snare. Resection and retrieval were complete. Multiple small and large-mouthed diverticula were found from sigmoid to transverse colon. The colon (entire examined portion) appeared normal. Biopsies for histology were taken with a cold forceps from the right colon, left colon and rectum for evaluation of microscopic colitis. Verification of patient identification for the specimen was done by the physician and nurse using the patient's name and date. Estimated blood loss was minimal. Non-bleeding internal hemorrhoids were found during retroflexion. The hemorrhoids were small. Impression: - The examined portion of the ileum was normal. - One 12 mm polyp at the recto-sigmoid colon, removed with a hot snare. Resected and retrieved. - Diverticulosis from sigmoid to transverse colon. - The entire examined colon is otherwise normal. Biopsied. - Non-bleeding internal hemorrhoids. Recommendation: - Discharge patient to home. - Await pathology results. - Repeat colonoscopy in 3 years for surveillance based on pathology results. Ricci An MD 12/31/2016 1:43:59 PM This report has been signed electronically. Note Initiated On: 12/31/2016 1:07 PM I attest to the content of the Intraoperative Record and orders documented therein, exceptions below
--- NOTE | 2016-12-31 13:47 | Discharge Instructions ---
Endoscopy Patient Instructions Date / Procedure(s) Performed Dec 31, 2016. Colonoscopy, EGD Allergy Information Coded Allergies: Prednisone (Verified Allergy, Severe, INCREASED HEART RATE,ANXIETY, ) Sulfa Antibiotics (Verified Allergy, Severe, INCREASED HEARTRATE/STOMACH SICKNESS, 12/31/16) Citalopram (Verified Allergy, Mild, UNK, 12/31/16) Discharge Date / Findings Dec 31, 2016. - [place]-colored mucosa suspicious for short-segment Friedman's esophagus. Biopsied. - Normal stomach. Biopsied. - Normal duodenal bulb and 2nd part of the duodenum. Biopsied. - One non-bleeding superficial duodenal ulcer. Biopsied. - 12 mm polyp in rectosigmoid, resected. - Diverticulosis and hemorrhoids. Medication Instructions Reported Home Medications Medications Dose Route/Sig Max Daily Dose Days Date Category Ativan (Lorazepam) 1 Mg Tab 1 Mg PO Q6H 12/31/16 Reported Toprol-Xl (Metoprolol Succinate) 100 Mg Tabcr 100 Mg PO DAILY AT 1600 12/30/16 Reported Hydrochlorothiazide 12.5 Mg Tab 1 Tab PO DAILY AT 1600 90 12/30/16 Reported Dicyclomine Hcl 10 Mg Cap 1 Cap PO BID 30 12/30/16 Reported Cozaar (Losartan Potassium) 100 Mg Tab 100 Mg PO QAM 12/19/16 Reported Provider Instructions Activity Restrictions - No exercising or heavy lifting for 24 hours. - Do not drink alcohol the day of the procedure. - Do not drive a car or operate machinery until the day after the procedure. - Do not make any important decisions or sign important papers in 24 hours after the procedure. Following Day: - Return to full activity which may include returning to work/school. Diet Start your diet with liquids and light foods (jello, soup, juice, toast). Then eat your usual diet if not nauseated. Treatment For Common After Affects For mild abdominal pain, bloating, or excessive gas: - Rest - Eat lightly - Lie on right side Follow-Up Information - Follow pathology results. - Follow an antireflux regimen. - Use Prilosec (omeprazole) 40 mg PO daily. - Repeat the upper endoscopy for surveillance based on pathology results. - Repeat colonoscopy based on pathology result, likely in 3 years. - Avoid NSAIDs like Ibuprofen, Advil, Aleve, etc... - Follow-up with Dr. Daryl Souza as scheduled Anesthesia Information What You Should Know You have had a procedure that required some medicine to reduce anxiety and discomfort. This treatment is called moderate sedation. After receiving the treatment, you may be sleepy, but you will be able to breathe on your own. The effects of the treatment may last for several hours. Follow these instructions along with Activity/Diet recommendations noted above: * Do NOT do anything where dizziness or clumsiness would be dangerous. * Rest quietly at home today, then you can be up and about tomorrow. * Have a responsible person stay with you the rest of today. * You may have had an I.V. today. If so, you may take the dressing off later today. Recommendations Call your doctor if: * Trouble breathing * Continuous vomiting for more than 24 hours * Temperature above 101 degrees * Severe abdominal pain or bloating * Pain not relieved by pain medicine ordered * There is increased drainage or redness from any incision * A large amount of rectal bleeding greater than 2-3 tablespoons. (If you had a polyp/s removed or have hemorrhoids, a small amount of blood - from the rectum is to be expected.) * You have any unanswered questions or concerns. IN THE EVENT OF A SERIOUS EMERGENCY, GO TO THE NEAREST EMERGENCY ROOM Your discharge instructions were prepared by provider Ricci An. Patient Instructions Signature Page Bjorn Pickett Patient (or Guardian) Signature/Date: I have read and understand the instructions given to me by my caregivers. Caregiver/RN/Doctor Signature/Date: The above-named patient and/or guardian has received patient instructions on this date. + Original Patient Signature Page (only) stays with chart. Please make copy for patient.
[2016-12-31 14:02] VITALS: BP 142/77; PULSE 56; O2SAT 95
== END | disposition home or self-care (01) ==
LOC: C.GI 12:00
PROVIDERS: ATTEND Student in an Organized Health Care Education/Training Program
DX: K21.9 Gastro-esophageal reflux disease without esophagitis (principal); R19.7 Diarrhea, unspecified; K22.70 Barrett's esophagus without dysplasia; K29.80 Duodenitis without bleeding; K26.9 Duodenal ulcer, unspecified as acute or chronic, without hemorrhage or perforation; D12.5 Benign neoplasm of sigmoid colon; K64.8 Other hemorrhoids; R10.13 Epigastric pain; Z90.49 Acquired absence of other specified parts of digestive tract; Z98.1 Arthrodesis status; Z80.0 Family history of malignant neoplasm of digestive organs; J45.909 Unspecified asthma, uncomplicated; Z87.442 Personal history of urinary calculi; E66.9 Obesity, unspecified

== ENCOUNTER 2021-06-07 10:43 | Inpatient (IN) ==
[2021-06-07] MEDS ORDERED: HYDROmorphone INJ 1 MG/ML SYRINGE IV STA ×2 (11:08→11:54)
--- NOTE | 2021-06-07 11:28 | Emergency Department Note ---
History of Present Illness General Chief Complaint: Pain (Generalized) Stated Complaint: LOW BACK PAIN, R HIP, R LEG PAIN, INCONTINENCE Time Seen by Provider: 06/07/21 11:00 History of Present Illness Provider Complaint: back pain Onset (ago): day(s) 2 Duration: progressively worsening Similar Symptoms Previously: Yes Location: lumbar spine Quality: + stabbing Radiation: none Severity: severe Current Pain Intensity: 9 Relieved By: + none Exacerbated By: + none Context: no turning/twisting, no fall, no trauma or no IV drug use Associated symptoms: + weakness, + loss of sensation in lower extremities, + urinary incontinence and + parasthesias; no fatigue, no syncope, no difficulty walking, no fecal incontinence, no fever or no dysuria sent by [facility] Home Medications Medication Instructions Recorded Confirmed Type buspirone 15 mg tablet 15 mg PO BID 05/30/21 06/07/21 History gabapentin 100 mg capsule 100 mg PO TID 05/30/21 06/07/21 History hydrochlorothiazide 12.5 mg capsule 12.5 mg PO QAM 05/30/21 06/07/21 History metoprolol succinate 100 mg 100 mg PO BID 05/30/21 06/07/21 History tablet,extended release 24 hr naproxen 500 mg tablet 500 mg PO BID PRN #20 tab 05/30/21 06/07/21 Rx omeprazole 40 mg capsule,delayed 40 mg PO BID 05/30/21 06/07/21 History release oxycodone-acetaminophen 10 mg-325 1 tab PO BID PRN 05/30/21 06/07/21 History mg tablet rosuvastatin 10 mg tablet 10 mg PO QAM 05/30/21 06/07/21 History telmisartan 80 mg tablet 80 mg PO DAILY@1600 05/30/21 06/07/21 History Allergies Allergy/AdvReac Type Severity Reaction Status Date / Time prednisone Allergy Severe INCREASED Verified 06/07/21 14:50 HEART RATE,ANXIETY Sulfa (Sulfonamide Allergy Severe INCREASED Verified 06/07/21 14:50 Antibiotics) HEARTRATE/STOMACH SICKNESS citalopram Allergy Mild Unknown Verified 06/07/21 14:50 Past Med/Surg History Medical History Anxiety HLD (hyperlipidemia) Lumbar radiculopathy No pertinent family history Surgical History No pertinent past surgical history Social History Smoking Status: Never smoker Preferred Language: Swedish Feels Safe at Home: Yes Physical Exam Vital Signs Vital Signs - 24 hr 06/07/21 10:52 06/07/21 11:08 06/07/21 12:30 Temperature 36 C L Temperature Source Temporal Artery Scan Pulse Rate 87 Pulse Rate [Left] 78 Pulse Rhythm [Left] Regular Pulse Strength [Left] Normal Respiratory Rate 18 18 Respiratory Effort / Characteristics Non-Labored Non-Labored Spontaneous Respiratory Depth Normal Normal Respiratory Pattern Regular Blood Pressure 192/117 H Blood Pressure [Left Arm] 156/97 H Blood Pressure Mean 142 Blood Pressure Mean [Left Arm] 116 Blood Pressure Position [Left Arm] Lying Pulse Oximetry 97 97 97 Oxygen Delivery Method Room Air Room Air Room Air Sepsis Recent Fever Within 48 Hours No Sepsis New/Unexplained Change in Mental Status No Sepsis Action Taken by Nursing No Action Required 06/07/21 14:00 Temperature Temperature Source Pulse Rate Pulse Rate [Left] 86 Pulse Rhythm [Left] Regular Pulse Strength [Left] Respiratory Rate 14 Respiratory Effort / Characteristics Non-Labored Respiratory Depth Normal Respiratory Pattern Blood Pressure Blood Pressure [Left Arm] 170/101 H Blood Pressure Mean Blood Pressure Mean [Left Arm] 124 Blood Pressure Position [Left Arm] Pulse Oximetry 93 Oxygen Delivery Method Room Air Sepsis Recent Fever Within 48 Hours Sepsis New/Unexplained Change in Mental Status Sepsis Action Taken by Nursing Physical Exam GENERAL: He is oriented to person, place, and time. He appears well-developed and well-nourished. He does not appear distressed. HENT: Exam performed. - Head: Normocephalic and atraumatic. - Right Ear: External ear normal. No mastoid tenderness. - Left Ear: External ear normal. No mastoid tenderness. - Mouth/Throat: The oropharynx is clear and moist. No trismus in the jaw. No dental abscesses or uvula swelling. No oropharyngeal exudate or tonsillar abscesses. EYES: Conjunctivae and EOM are normal. Pupils are equal, round, and reactive to light. Right eye exhibits no discharge. Left eye exhibits no discharge. No scleral icterus. NECK: Normal range of motion. Neck supple. No JVD present. No spinous process tenderness present. No carotid bruit present. No rigidity. No tracheal deviation and normal range of motion present. No Brudzinski's sign and no Kernig's sign noted. CV: Normal rate, regular rhythm, normal heart sounds and intact distal pulses. There is no peripheral edema. Palpable radial pulses bue. PULM/CHEST: Effort normal and breath sounds normal. No respiratory distress. No stridor. He has no wheezes. He has no rales. - Chest Wall: He exhibits no tenderness. ABD: The abdomen is soft and obese Bowel sounds are normal. He has no distension. No mass is present. There is no tenderness. There is no rebound, no guarding, no Ward's sign and no tenderness at McBurney's point. Rovsig negative. MUSC/SKEL: Pain on palpation of L-spine. NEURO: He is alert and oriented to person, place, and time. He has normal strength. No cranial nerve deficit. GCS eye subscore is 4. GCS verbal subscore is 5. GCS motor subscore is 6. Cerebellar tests wnl. Saddle anesthesia and paresthesias. SKIN: Skin is warm and dry. He is not diaphoretic. PSYCH: He has a normal mood and affect. Behavior is normal. Judgment and thought content normal. Course Course 1100: The patient was evaluated in room C9. A complete history and physical exam was performed Cardiac monitoring: An order was placed for continuous cardiac monitoring. The monitor shows a rate of 90 with sinus rhythm Administered Medications Discontinued Medications Hydromorphone HCl (Hydromorphone Inj 1 Mg/Ml Syringe) 1 mg IV NOW STA Stop: 06/07/21 11:09 Last Admin: 06/07/21 11:31 Dose: 1 mg Documented by: [id number] Hydromorphone HCl (Hydromorphone Inj 1 Mg/Ml Syringe) 1 mg IV NOW STA Stop: 06/07/21 11:55 Last Admin: 06/07/21 12:01 Dose: 1 mg Documented by: [id number] Lorazepam (Lorazepam 2 Mg/1 Ml Vial) 1 mg IV NOW STA Stop: 06/07/21 11:55 Last Admin: 06/07/21 12:44 Dose: 1 mg Documented by: [id number] Medical Decision Making Laboratory Data Result diagrams: 06/07/21 11:20 06/07/21 12:20 Lab Results 06/07/21 06/07/21 06/07/21 Range/Units 11:20 11:20 11:20 WBC 7.07 (4.8-10.8) K/uL RBC 5.26 (4.7-6.1) M/uL Hgb 15.6 (14.0-18.0) g/dL Hct 44.3 (42-52) % MCV 84.2 (80-100) fL MCH 29.7 (25-34) pg MCHC 35.2 (32-36) g/dL RDW Std Deviation 39.6 (36.4-46.3) fL RDW Coeff of Lauren 12.9 (11.5-14.5) % Plt Count 225 (130-400) K/uL MPV 10.6 H (7.4-10.4) fL Immature Gran % (Auto) 0.3 % Neut % (Auto) 70.6 % Lymph % (Auto) 18.5 % [place] % (Auto) 8.9 % Eos % (Auto) 1.6 % Baso % (Auto) 0.1 % Neut # (Auto) 4.99 (1.4-6.5) K/uL Lymph # (Auto) 1.31 (1.2-3.4) K/uL [place] # (Auto) 0.63 H (0.11-0.59) K/uL Eos # (Auto) 0.11 (0-0.5) K/uL Baso # (Auto) 0.01 (0-0.2) K/uL Immature Gran # (Auto) 0.02 (0.00-0.02) K/uL PT 10.3 (9.0-12.0) Seconds INR 1.0 (0.9-1.1) APTT 24.3 (21.0-31.0) Seconds PTT Ratio 0.9 Sodium 139 (136-145) mmol/L Potassium TNP Chloride 105 (98-107) mmol/L Carbon Dioxide 25 (21-32) mmol/L Anion Gap 9 (3-11) BUN 18 (6-23) mg/dl Creatinine 0.98 (0.6-1.4) mg/dl Est Cr Clr Drug Dosing Not Reportable Est GFR ( Amer) 107.5 ml/min Est GFR (Non-Af Amer) 92.7 ml/min BUN/Creatinine Ratio 18.4 (10-20) Glucose 152 H (70-99(Fasting)) mg/dl Calcium 9.4 (8.5-10.1) mg/dl SARS-CoV-2, RNA, NAAT (NEGATIVE) 06/07/21 06/07/21 Range/Units 12:20 Unknown WBC (4.8-10.8) K/uL RBC (4.7-6.1) M/uL Hgb (14.0-18.0) g/dL Hct (42-52) % MCV (80-100) fL MCH (25-34) pg MCHC (32-36) g/dL RDW Std Deviation (36.4-46.3) fL RDW Coeff of Lauren (11.5-14.5) % Plt Count (130-400) K/uL MPV (7.4-10.4) fL Immature Gran % (Auto) % Neut % (Auto) % Lymph % (Auto) % [place] % (Auto) % Eos % (Auto) % Baso % (Auto) % Neut # (Auto) (1.4-6.5) K/uL Lymph # (Auto) (1.2-3.4) K/uL [place] # (Auto) (0.11-0.59) K/uL Eos # (Auto) (0-0.5) K/uL Baso # (Auto) (0-0.2) K/uL Immature Gran # (Auto) (0.00-0.02) K/uL PT (9.0-12.0) Seconds INR (0.9-1.1) APTT (21.0-31.0) Seconds PTT Ratio Sodium (136-145) mmol/L Potassium 3.9 Chloride (98-107) mmol/L Carbon Dioxide (21-32) mmol/L Anion Gap (3-11) BUN (6-23) mg/dl Creatinine (0.6-1.4) mg/dl Est Cr Clr Drug Dosing Est GFR ( Amer) ml/min Est GFR (Non-Af Amer) ml/min BUN/Creatinine Ratio (10-20) Glucose (70-99(Fasting)) mg/dl Calcium (8.5-10.1) mg/dl SARS-CoV-2, RNA, NAAT NEGATIVE (NEGATIVE) Imaging Data Radiologist's Impression: Lumbar Spine MRI 06/07/21 11:08 MR lumbar spine wo con CLINICAL HISTORY: back pain incontinence TECHNIQUE: Multiplanar sequences through the lumbar spine were obtained, without intravenous contrast. Comparison: None available at the time of this dictation. FINDINGS: The alignment is anatomical. Degenerative changes are noted in the discs and vertebral bodies. L1-L2: No significant abnormality. L2-L3: Broad-based posterior disc bulge is seen with mild canal stenosis. L3-L4: Broad-based posterior disc bulge is seen with mild canal and neuroforaminal stenosis. L4-L5: There is a focal right disc bulge with mild canal and left neuroforaminal stenosis and moderate right neuroforaminal stenosis. L5-S1: There is a moderate bilateral neural foraminal stenosis. The spinal ligaments are intact, without evidence of disruption or abnormal signal intensity. The spinal cord is normal in signal intensity and there is no evidence of cord contusion. There is no evidence of an extradural, intradural, extramedullary or intramedullary lesion. Visualized soft tissues are normal. IMPRESSION: Multilevel degenerative changes with up to mild canal and moderate bilateral neuroforaminal stenosis. There is a focal right disc bulge at L4-L5. ACT 112: Negative or not required by law. Electronically signed by: Reynaldo Law M.D. 06/07/2021 1:55 PM MDM Narrative Patient was evaluated by Dr. Mancilla in the emergency department and admitted to his service. Impression & Plan Lumbar disc herniation with radiculopathy Discharge Plan Visit Data Chief Complaint: Pain (Generalized) Stated Complaint: LOW BACK PAIN, R HIP, R LEG PAIN, INCONTINENCE ED Provider: Homero Martinez Discharge Problem: Lumbar disc herniation with radiculopathy Patient Disposition: Admitted As Inpatient Forms Stand Alone Forms: [facility] [employer] Prescriptions Prescriptions: No Action metoprolol succinate 100 mg tablet extended release 24 hr 100 mg PO BID RF: 0 omeprazole 40 mg capsule,delayed release(DR/EC) 40 mg PO BID RF: 0 oxycodone-acetaminophen 10-325 mg tablet 1 tab PO BID PRN (Reason: Pain) RF: 0 telmisartan 80 mg tablet 80 mg PO DAILY@1600 RF: 0 hydrochlorothiazide 12.5 mg capsule 12.5 mg PO QAM RF: 0 gabapentin 100 mg capsule 100 mg PO TID RF: 0 buspirone 15 mg tablet 15 mg PO BID RF: 0 rosuvastatin 10 mg tablet 10 mg PO QAM RF: 0 naproxen 500 mg tablet 500 mg PO BID PRN (Reason: pain) Qty: 20 RF: 0 Referrals Referrals: Daryl Souza, [Primary Care Provider] -
[2021-06-07 11:36] LABS: Basophils # (auto) 0.01 K/uL (0-0.2); Basophils % (auto) 0.1 %; Eosinophils # (auto) 0.11 K/uL (0-0.5); Eosinophils % (auto) 1.6 %; Hematocrit (blood only) 44.3 % (42-52); Hemoglobin 15.6 g/dL (14.0-18.0); Immature Granulocytes # (auto) 0.02 K/uL (0.00-0.02); Immature Granulocytes % (auto) 0.3 %; Lymphocytes # (auto) 1.31 K/uL (1.2-3.4); Lymphocytes % (auto) 18.5 %; Mean Corpuscular Hemoglobin 29.7 pg (25-34); Mean Corpuscular Hgb Conc 35.2 g/dL (32-36); Mean Corpuscular Volume 84.2 fL (80-100); Mean Platelet Volume 10.6 fL (7.4-10.4); Monocytes # (auto) 0.63 K/uL (0.11-0.59); Monocytes % (auto) 8.9 %; Neutrophils # (auto) 4.99 K/uL (1.4-6.5); Neutrophils % (auto) 70.6 %; Platelet Count 225 K/uL (130-400); RDW Coefficient of Variation 12.9 % (11.5-14.5); RDW Standard Deviation 39.6 fL (36.4-46.3); Red Blood Count 5.26 M/uL (4.7-6.1); White Blood Count 7.07 K/uL (4.8-10.8)
[2021-06-07 11:48] LABS: Partial Thromboplastin Ratio 0.9; Partial Thromboplastin Time 24.3 Seconds (21.0-31.0); Prothrombin Time 10.3 Seconds (9.0-12.0)
[2021-06-07] MEDS ORDERED: LORazepam 2 MG/1 ML VIAL IV STA (11:54)
[2021-06-07 12:10] LABS: Anion Gap 9 (3-11); BUN Creatinine Ratio 18.4 (10-20); Blood Urea Nitrogen 18 mg/dl (6-23); Calcium 9.4 mg/dl (8.5-10.1); Carbon Dioxide 25 mmol/L (21-32); Chloride 105 mmol/L (98-107); Est GFR (African American) 107.5 ml/min; Est GFR (Non-African American) 92.7 ml/min; Glucose 152 mg/dl (70-99(Fasting)); Sodium 139 mmol/L (136-145)
--- NOTE | 2021-06-07 13:56 | Magnetic Resonance Report ---
MR lumbar spine wo con CLINICAL HISTORY: back pain incontinence TECHNIQUE: Multiplanar sequences through the lumbar spine were obtained, without intravenous contrast . Comparison: None available at the time of this dictation. FINDINGS: The alignment is anatomical. Degenerative changes are noted in the discs and vertebral bodies. L1-L2: No significant abnormality. L2-L3: Broad-based posterior disc bulge is seen with mild canal stenosis. L3-L4: Broad-based posterior disc bulge is seen with mild canal and neuroforaminal stenosis. L4-L5: There is a focal right disc bulge with mild canal and left neuroforaminal stenosis and moderat e right neuroforaminal stenosis. L5-S1: There is a moderate bilateral neural foraminal stenosis. The spinal ligaments are intact, without evidence of disruption or abnormal signal intensity. The spi nal cord is normal in signal intensity and there is no evidence of cord contusion. There is no eviden ce of an extradural, intradural, extramedullary or intramedullary lesion. Visualized soft tissues are normal. IMPRESSION: Multilevel degenerative changes with up to mild canal and moderate bilateral neuroforaminal stenosis. There is a focal right disc bulge at L4-L5. ACT 112: Negative or not required by law. Electronically signed by: Reynaldo Law M.D. 06/07/2021 1:55 PM
--- NOTE | 2021-06-07 15:00 | History & Physical Report ---
Date of Service June 07, 2021 Assessment & Plan (1) Lumbar disc herniation with radiculopathy: Plan: Assessment recurrent disc condition L4-5 on the right with a free fragment and caudal migration. Plan at this time at length discussion with the patient his reviewing his MRI findings and clinical presentation. He does have a recurrent disc condition L4-5 on the right with a fragment that is migrated caudally and clearly displacing this traversing L5 nerve root. This is the area of the previous laminotomy subsequently the nerve is duly compressed with both scar and disc material. This would account for severe radiculopathy. At this point would recommend a revision decompression and fusion L4-5. I acknowledged issues with the L5-S1 level as far as a broad-based disc protrusion but no evidence of recurrent disc at this region. Ideally would avoid extension of fusion at this level. Risk-benefit pros cons alternatives were outlined in detail. Risk include but not limited to anesthesia blindness stroke process nerve damage blood loss requiring transfusion infection require operation patient with a marked improvement of his radiculopathy. Patient will make n.p.o. after midnight plan for surgery as soon as possible in light of his marked neurologic decline and severe pain. History of Present Illness Chief Complaint: Back and right leg pain with weakness Primary Care Provider: Daryl Souza, This is a 46-year-old male who presents with marked on status of the past several months. Describes pain involving the right buttock posterior thigh extending the dorsum of his right foot. There is associated numbness and weakness. Left lower extremity is essentially asymptomatic. He is no longer able to ambulate any significant distance. He is taking multiple oral medications without success. He said 1 epidural injection without any improvement. Does have a history of undergoing a laminectomy in the lumbar spine approximately 7 years ago. He has been on disability since that time. Allergies Allergy/AdvReac Type Severity Reaction Status Date / Time prednisone Allergy Severe INCREASED Verified 06/07/21 14:50 HEART RATE,ANXIETY Sulfa (Sulfonamide Allergy Severe INCREASED Verified 06/07/21 14:50 Antibiotics) HEARTRATE/STOMACH SICKNESS citalopram Allergy Mild Unknown Verified 06/07/21 14:50 Home Medications Medication Instructions Recorded Confirmed Type buspirone 15 mg tablet 15 mg PO BID 05/30/21 06/07/21 History gabapentin 100 mg capsule 100 mg PO TID 05/30/21 06/07/21 History hydrochlorothiazide 12.5 mg capsule 12.5 mg PO QAM 05/30/21 06/07/21 History metoprolol succinate 100 mg 100 mg PO BID 05/30/21 06/07/21 History tablet,extended release 24 hr naproxen 500 mg tablet 500 mg PO BID PRN #20 tab 05/30/21 06/07/21 Rx omeprazole 40 mg capsule,delayed 40 mg PO BID 05/30/21 06/07/21 History release oxycodone-acetaminophen 10 mg-325 1 tab PO BID PRN 05/30/21 06/07/21 History mg tablet rosuvastatin 10 mg tablet 10 mg PO QAM 05/30/21 06/07/21 History telmisartan 80 mg tablet 80 mg PO HS 05/30/21 06/07/21 History Past Med/Surg History Medical History Anxiety HLD (hyperlipidemia) Lumbar radiculopathy No pertinent family history Surgical History No pertinent past surgical history Social History Smoking Status: Never smoker Preferred Language: Hungarian Feels Safe at Home: Yes Physical Exam Physical Exam: Patient is in obvious severe distress. He has difficulty moving about the bed during our exam. He exhibits severe tension signs straight leg raising on the right negative on the left. There is a 3+/5 right dorsiflexion/hallucis longus compared to 5 on the left. Quadriceps of breakaway secondary to pain. Sensory is diminished in the right compared to left. Deep tendon reflexes absent. Results & Data ([facility]) Vital Signs (Past 12 Hours) Vital Signs Temp Pulse Pulse Resp BP BP Pulse Ox 06/07/21 14:00 86 14 170/101 H 93 06/07/21 12:30 78 18 156/97 H 97 06/07/21 11:08 97 06/07/21 10:52 36 C L 87 18 192/117 H 97
[2021-06-07] MEDS ORDERED: MoRPHine SULFATE 4 MG/ML 1 ML CARP\\VIAL IV STA (15:55)
[2021-06-07] MEDS ORDERED: TELMISARTAN 40 MG TAB PO STA (15:59)
[2021-06-07] MEDS ORDERED: busPIRone 7.5 MG TAB PO STA (15:59)
[2021-06-07] MEDS ORDERED: METOPROLOL SUCC 50MG EXT REL TAB PO STA (15:59)
[2021-06-07] MEDS ORDERED: ACETAMINOPHEN 1,000 MG/100 ML VIAL IV PRN (16:15)
[2021-06-07] MEDS ORDERED: NALOXONE HCL 0.4 MG/1 ML VIAL/CARP IV PRN (16:15)
[2021-06-07] MEDS ORDERED: ONDANSETRON INJ 2 MG/ML 2 ML VIAL IV PRN (16:15)
[2021-06-07] MEDS ORDERED: ONDANSETRON 4 MG OD TAB PO PRN (16:15)
[2021-06-07] MEDS ORDERED: LORazepam 0.5 MG TAB PO PRN (16:15)
[2021-06-07] MEDS ORDERED: hydrOXYzine HCl 25 MG TAB PO PRN (16:15)
[2021-06-07] MEDS ORDERED: GLUCOSE 10 TABS/TUBE PO PRN (16:15)
[2021-06-07] MEDS ORDERED: DEXTROSE 50% 50 ML SYRINGE IV PRN (16:15)
[2021-06-07] MEDS ORDERED: ACETAMINOPHEN 500 MG TAB PO PRN (16:15)
[2021-06-07] MEDS ORDERED: METOCLOPRAMIDE HCL INJ 5 MG/ML 2 ML VIAL IV PRN (16:15)
[2021-06-07] MEDS ORDERED: GLUCOSE 40% GEL 15 GM TUBE PO PRN (16:15)
[2021-06-07] MEDS ORDERED: CARBOHYDRATES FOR HYPOGLYCEMIA PO PRN (16:15)
[2021-06-07] MEDS ORDERED: oxyCODONE HCL IR 5 MG TAB (IMMEDIATE RELEASE) PO PRN (16:15)
[2021-06-07] MEDS ORDERED: HYDROmorphone INJ 1 MG/ML SYRINGE IV PRN (16:15)
[2021-06-07] MEDS ORDERED: GLUCAGON FOR INJ 1 MG VIAL SQ PRN (16:15)
[2021-06-07] MEDS ORDERED: LORazepam 2 MG/1 ML VIAL IV PRN (16:15)
[2021-06-07] MEDS ORDERED: PROMETHAZINE HCL 12.5 MG in SODIUM CHLORIDE 0.9% 50 ML IV PRN (16:15)
--- NOTE | 2021-06-07 16:19 | Consultation ---
Date of Consultation June 07, 2021 Assessment & Plan (1) Lumbar disc herniation with radiculopathy: (2) T2DM (type 2 diabetes mellitus): (3) HTN (hypertension): (4) Anxiety: (5) Morbid obesity: This is a 46-year-old male who has significant past medical history of diet- controlled T2DM, HTN, hypertriglyceridemia, obesity, RLS, anxiety who presents to ED secondary to severe back pain. Lumbar disc herniation with radiculopathy Lumbar spine MRI in ED revealed focal right disc bulge at L4-L5 Patient undergo surgical intervention tomorrow N.p.o. after midnight Pain management per orthopedics Obtain EKG and chest x-ray preoperatively T2DM Diet controlled A1c 7.0 05/2021 Accu-Cheks with NovoLog per protocol HTN BP elevated likely in setting of pain Continue metoprolol and telmisartan Hold HCTZ for now until reevaluated postoperatively, resume when able Anxiety Continue BuSpar GERD Friedman's Continue PPI DVT ppx: SCD/TEDS per primary Dispo: MedSur PCP: Daryl Souza FULL CODE Pt was seen and examined in collaboration with Dr. Marcano, please see addendum Thank you for this consultation. We will follow the patient with you during their hospital stay. You can reach a member of the [facility] Hospitalist Team 23/09 via hospitalist role on tiger text. Supervising Physician Co-Signing Physician Notes I saw and examined the patient at bedside. I reviewed the chart and discussed the case with Meera PORTILLO. In summary, this is a 46 year old morbidly obese male with back pain who presented to the ED today with severe back pain with right sided sciatica. His lumbar spine MRI showed focal right disc bulge at L4- L5. He was seen by Dr Mancilla and plan for surgery tomorrow, npo after midnight. Pain meds including iv dilaudid and ativan ordered by him for better pain control. Pain complaining of pain during my encounter. Lying in bed, not in a cute distress. Awake, alert oriented. Chest clear, heart sounds normal. Abdomen benign. No edema. BP elevated in setting of pain. Rest per the note above. History of Present Illness Requesting Physician: Dr. Mancilla Reason for Consultation: Medical Management Attending Physician: Dr. Mancilla History of Present Illness This is a 46-year-old male who has significant past medical history of diet-controlled T2DM, HTN, hypertriglyceridemia, obesity, RLS, anxiety who presents to ED secondary to severe back pain. He further complains of radicular symptoms of pain down the posterior aspect of right leg along with numbness and tingling. Previously had lumbar surgery to L4-L5 approximately 7 years ago down in [place]. His is at bedside. He underwent lumbar spine MRI in ED which revealed a focal right disc bulge at L4-L5, multilevel degenerative changes with up to mild canal and moderate bilateral neuroforaminal stenosis. Case was discussed with orthopedic spine surgeon Dr. Mancilla who admitted patient for surgical intervention in a.m. Currently he is an 8 out of 10 pain and is requesting additional analgesia. He continues to have radicular symptoms. He denies any saddle anesthesia or loss of bowel or bladder. He denies any recent illness, fever, chills, sweats, lightheadedness, dizziness, chest pain, shortness of breath, nausea, vomiting, abdominal pain, change in bowel or urinary habits. At baseline he is able to ambulate 1 flight of stairs without getting chest pain or shortness of breath. Regards to patient's T2DM his last A1c was 7.0 in May 2021 per [facility]. He does have hypertriglyceridemia and he is on rosuvastatin and has been trying to control with diet. He also has difficulty with anxiety but currently feels it is controlled. Allergies Allergy/AdvReac Type Severity Reaction Status Date / Time prednisone Allergy Severe INCREASED Verified 06/07/21 14:50 HEART RATE,ANXIETY Sulfa (Sulfonamide Allergy Severe INCREASED Verified 06/07/21 14:50 Antibiotics) HEARTRATE/STOMACH SICKNESS citalopram Allergy Mild Unknown Verified 06/07/21 14:50 Home Medications Medication Instructions Recorded Confirmed Type buspirone 15 mg tablet 15 mg PO BID 05/30/21 06/07/21 History gabapentin 100 mg capsule 100 mg PO TID 05/30/21 06/07/21 History hydrochlorothiazide 12.5 mg capsule 12.5 mg PO QAM 05/30/21 06/07/21 History metoprolol succinate 100 mg 100 mg PO BID 05/30/21 06/07/21 History tablet,extended release 24 hr naproxen 500 mg tablet 500 mg PO BID PRN #20 tab 05/30/21 06/07/21 Rx omeprazole 40 mg capsule,delayed 40 mg PO BID 05/30/21 06/07/21 History release oxycodone-acetaminophen 10 mg-325 1 tab PO BID PRN 05/30/21 06/07/21 History mg tablet rosuvastatin 10 mg tablet 10 mg PO QAM 05/30/21 06/07/21 History telmisartan 80 mg tablet 80 mg PO DAILY@1600 05/30/21 06/07/21 History Patient History Medical History (Updated 06/07/21 @ 16:10 by Meera Ocasio PA-C) Anxiety Friedman esophagus HLD (hyperlipidemia) HTN (hypertension) Lumbar radiculopathy Morbid obesity T2DM (type 2 diabetes mellitus) Surgical History (Updated 06/07/21 @ 16:10 by Meera Ocasio PA-C) History of cholecystectomy History of esophagogastroduodenoscopy (EGD) barretts Family History (Updated 06/07/21 @ 16:11 by Meera Ocasio PA-C) Father Myocardial infarction Social History (Updated 06/07/21 @ 16:11 by Meera Ocasio PA-C) Smoking Status: Never smoker Tobacco Type: Smokeless Tobacco (Dip or Chew) Cigarettes Per Day: 1/2 snuff a day; Do You Dip or Chew Tobacco: Yes; Hx Alcohol Use: No Hx Substance Use: No Preferred Language: Slovenian Communication Ability: Effective marital status: Current Living Situation: Spouse Feels Safe at Home: Yes Review of Systems Review of Systems: All systems reviewed & are unremarkable except as noted in HPI & below Physical Exam Physical Exam: Constitutional: WD/WN, vitals as above, NAD, sitting up in bed, pleasant, conversing easily Head: Normocephalic, Atraumatic Eyes: PERRL, conjunctivae normal, anicteric sclerae ENMT: external ear and nose normal, oropharynx normal Neck: trachea midline, no thyromegaly normal visual inspection Respiratory: normal respiratory effort, lungs clear to auscultation, no wheeze, rales, rhonchi. Normal insp/exp effort, no accessory muscle use Cardiovascular: RRR, no murmur, no edema Vessels: no JVD or carotid bruit Chest: normal inspection of chest Abdomen: normal bowel sounds, soft, nontender, no hepatosplenomegaly Musculoskeletal: no cyanosis or clubbing, AROM x 4 Skin: no rashes, warm and dry normal turgor Neurologic: PERRL, EOMI, accommodation nl, no face palsy, no dysarthria CN's II-XI intact bilaterally and moves all extremities Psychiatric: A+Ox3, euthymic affect Lymphatic: no cervical or axillary lymphadenopathy : deferred Results & Data (MN) Vital Signs (Past 12 Hours) Vital Signs Temp Pulse Pulse Resp BP BP Pulse Ox 06/07/21 14:00 86 14 170/101 H 93 06/07/21 12:30 78 18 156/97 H 97 06/07/21 11:08 97 06/07/21 10:52 36 C L 87 18 192/117 H 97 Laboratory Results Short CBC 06/07/21 Range/Units 11:20 WBC 7.07 (4.8-10.8) K/uL Hgb 15.6 (14.0-18.0) g/dL Hct 44.3 (42-52) % Plt Count 225 (130-400) K/uL BMP 06/07/21 06/07/21 11:20 12:20 Sodium 139 Potassium TNP 3.9 Chloride 105 Carbon Dioxide 25 BUN 18 Creatinine 0.98 Glucose 152 H Calcium 9.4 Diagnostic Findings Lumbar Spine MRI 06/07/21 11:08 MR lumbar spine wo con CLINICAL HISTORY: back pain incontinence TECHNIQUE: Multiplanar sequences through the lumbar spine were obtained, without intravenous contrast. Comparison: None available at the time of this dictation. FINDINGS: The alignment is anatomical. Degenerative changes are noted in the discs and vertebral bodies. L1-L2: No significant abnormality. L2-L3: Broad-based posterior disc bulge is seen with mild canal stenosis. L3-L4: Broad-based posterior disc bulge is seen with mild canal and neuroforaminal stenosis. L4-L5: There is a focal right disc bulge with mild canal and left neuroforaminal stenosis and moderate right neuroforaminal stenosis. L5-S1: There is a moderate bilateral neural foraminal stenosis. The spinal ligaments are intact, without evidence of disruption or abnormal signal intensity. The spinal cord is normal in signal intensity and there is no evidence of cord contusion. There is no evidence of an extradural, intradural, extramedullary or intramedullary lesion. Visualized soft tissues are normal. IMPRESSION: Multilevel degenerative changes with up to mild canal and moderate bilateral neuroforaminal stenosis. There is a focal right disc bulge at L4-L5. ACT 112: Negative or not required by law. Electronically signed by: Reynaldo Law M.D. 06/07/2021 1:55 PM Medications Administered Medication List Discontinued Medications Hydromorphone HCl (Hydromorphone Inj 1 Mg/Ml Syringe) 1 mg IV NOW STA Stop: 06/07/21 11:09 Last Admin: 06/07/21 11:31 Dose: 1 mg Documented by: [id number] Hydromorphone HCl (Hydromorphone Inj 1 Mg/Ml Syringe) 1 mg IV NOW STA Stop: 06/07/21 11:55 Last Admin: 06/07/21 12:01 Dose: 1 mg Documented by: [id number] Lorazepam (Lorazepam 2 Mg/1 Ml Vial) 1 mg IV NOW STA Stop: 06/07/21 11:55 Last Admin: 06/07/21 12:44 Dose: 1 mg Documented by: [id number]
--- NOTE | 2021-06-07 16:36 | XRay Report ---
XR chest 1V portable HISTORY: Preop. Back pain. COMPARISON: Chest 12/19/2016. FINDINGS: There are low lung volumes. Left midlung zone linear density consistent with subsegmental a telectasis. Mild enlargement of the cardiac silhouette may be due to the low lung volumes. No focal l carmina consolidations to suggest pneumonia. No evidence for pulmonary edema. IMPRESSION: Low lung volumes. No acute process within the chest. ACT 112: Negative or not required by law. Electronically signed by: Chaka Cordero M.D. 06/07/2021 4:35 PM
[2021-06-07 16:49] LABS: Basophils # (auto) 0.01 K/uL (0-0.2); Basophils % (auto) 0.1 %; Eosinophils % (auto) 1.5 %; Hematocrit (blood only) 45.2 % (42-52); Hemoglobin 15.7 g/dL (14.0-18.0); Immature Granulocytes # (auto) 0.01 K/uL (0.00-0.02); Immature Granulocytes % (auto) 0.1 %; Lymphocytes # (auto) 1.55 K/uL (1.2-3.4); Lymphocytes % (auto) 22.6 %; Mean Corpuscular Hgb Conc 34.7 g/dL (32-36); Mean Corpuscular Volume 86.3 fL (80-100); Mean Platelet Volume 10.7 fL (7.4-10.4); Monocytes # (auto) 0.67 K/uL (0.11-0.59); Monocytes % (auto) 9.8 %; Neutrophils # (auto) 4.53 K/uL (1.4-6.5); Neutrophils % (auto) 65.9 %; Platelet Count 224 K/uL (130-400); RDW Standard Deviation 40.9 fL (36.4-46.3); Red Blood Count 5.24 M/uL (4.7-6.1); White Blood Count 6.87 K/uL (4.8-10.8)
[2021-06-07 17:16] LABS: Albumin Globulin Ratio 1.2 (0.9-2); Albumin Level 4.3 gm/dl (3.4-5.0); Bilirubin,Total 0.7 mg/dl (0.2-1.0); Calcium 9.2 mg/dl (8.5-10.1); Creatinine Clr Calc Pharmacy 176.7 ml/min; Est GFR (African American) 122.6 ml/min; Est GFR (Non-African American) 105.7 ml/min; Globulin 3.5 gm/dl (2.5-4.0); Potassium 3.9 mmol/L (3.5-5.1); Total Protein 7.8 gm/dl (6.0-8.3)
[2021-06-07] MEDS: INSULIN ASPART PER UNIT SC SCH ×2 (17:23→20:40)
[2021-06-07] MEDS: LACTATED RINGER'S 1,000 ML IV SCH (17:25)
[2021-06-07] MEDS: PANTOprazole 40 MG TAB PO SCH (20:47)
[2021-06-07] MEDS: GABAPENTIN 100 MG CAP PO SCH (20:48)
[2021-06-08] MEDS: HYDROmorphone INJ 0.5 MG/0.5 ML SYR IV PRN ×2 (01:50→06:30)
[2021-06-08] MEDS: LACTATED RINGER'S 1,000 ML IV SCH ×4 (02:33→20:50)
[2021-06-08] MEDS ORDERED: METOPROLOL SUCC 50MG EXT REL TAB PO SCH (08:00)
[2021-06-08] MEDS ORDERED: busPIRone 15 MG TAB PO SCH (08:00)
[2021-06-08] MEDS: GABAPENTIN 100 MG CAP PO SCH ×3 (08:24→20:46)
[2021-06-08] MEDS: METOPROLOL SUCC 50MG EXT REL TAB PO SCH ×2 (08:25→12:21)
[2021-06-08] MEDS: busPIRone 15 MG TAB PO SCH ×2 (08:26→12:20)
[2021-06-08] MEDS: ROSUVASTATIN CALCIUM 10 MG TAB PO SCH (08:27)
[2021-06-08] MEDS: PANTOprazole 40 MG TAB PO SCH ×2 (08:27→20:46)
[2021-06-08] MEDS ORDERED: MIDAZOLAM HCL 1 MG/ML 2ML VIAL ONE (09:25)
[2021-06-08] MEDS ORDERED: KETAMINE 50 MG/5 ML SYRINGE ONE (09:25)
[2021-06-08] MEDS ORDERED: HYDROmorphone INJ 2 MG/ML SYR/VIAL ONE (09:25)
--- NOTE | 2021-06-08 10:09 | Anesthesiology Consultation ---
Date of Service June 08, 2021 Assessment & Plan (1) Encounter for pre-operative examination: History Surgery Operation Date: 06/08/21 10:05 Proposed Procedures p L4-S1 Lumbar Revision, Spinal Cord Monitoring - Trung Mancilla DO Height/Weight Height: 6 ft 2 in Weight: 164.1 kg Allergies Allergy/AdvReac Type Severity Reaction Status Date / Time prednisone Allergy Severe INCREASED Verified 06/07/21 14:50 HEART RATE,ANXIETY Sulfa (Sulfonamide Allergy Severe INCREASED Verified 06/07/21 14:50 Antibiotics) HEARTRATE/STOMACH SICKNESS citalopram Allergy Mild Unknown Verified 06/07/21 14:50 Medications Home Medications Medication Instructions Recorded Confirmed Last Taken buspirone 15 mg tablet 15 mg PO BID 05/30/21 06/07/21 06/07/21 gabapentin 100 mg capsule 100 mg PO TID 05/30/21 06/07/21 06/07/21 hydrochlorothiazide 12.5 mg capsule 12.5 mg PO QAM 05/30/21 06/07/21 06/07/21 metoprolol succinate 100 mg 100 mg PO BID 05/30/21 06/07/21 06/07/21 tablet,extended release 24 hr naproxen 500 mg tablet 500 mg PO BID PRN #20 tab 05/30/21 06/07/21 06/07/21 omeprazole 40 mg capsule,delayed 40 mg PO BID 05/30/21 06/07/21 06/07/21 release oxycodone-acetaminophen 10 mg-325 1 tab PO BID PRN 05/30/21 06/07/21 06/07/21 mg tablet rosuvastatin 10 mg tablet 10 mg PO QAM 05/30/21 06/07/21 06/07/21 telmisartan 80 mg tablet 80 mg PO DAILY@1600 05/30/21 06/07/21 06/07/21 Active Medications Generic Name Dose Route Start Last Admin Trade Name Sandra PRN Reason Stop Dose Admin Buspirone HCl 15 mg 06/08/21 08:00 06/08/21 08:26 Buspirone 15 Mg Tab PO 07/08/21 07:59 15 mg BID MARCK Administration Gabapentin 100 mg 06/07/21 21:00 06/08/21 08:24 Gabapentin 100 Mg Cap PO 07/07/21 20:59 100 mg TID MARCK Administration Hydromorphone HCl 0.5 mg 06/07/21 16:15 06/08/21 06:30 Hydromorphone Inj 0.5 Mg/0.5 Ml Syr IV 06/21/21 16:14 0.5 mg Q3H PRN Administration MOD pain (scale 4-6) & Pre PT Hydromorphone HCl 1 mg 06/07/21 16:15 06/07/21 21:55 Hydromorphone Inj 1 Mg/Ml Syringe IV 06/21/21 16:14 1 mg Q3H PRN Administration severe pain (scale 7-10) Lactated Ringer's 1,000 mls @ 100 mls/hr 06/07/21 16:15 06/08/21 02:33 Lr IV 07/07/21 16:14 100 mls/hr .Q10H MARCK Administration Insulin Aspart 0 units 06/07/21 16:30 06/07/21 20:40 Insulin Aspart Per Unit SC 07/07/21 16:29 Not Given ACHS MARCK Metoprolol Succinate 100 mg 06/08/21 08:00 06/08/21 08:25 Metoprolol Succ 50mg Ext Rel Tab PO 07/08/21 07:59 100 mg BID MARCK Administration Oxycodone HCl 5 - 10 mg 06/07/21 16:15 06/07/21 20:48 Oxycodone Hcl Ir 5 Mg Tab (Immediate Release) PO 06/21/21 16:14 10 mg Q4H PRN Administration mod to severe pain Pantoprazole Sodium 40 mg 06/07/21 21:00 06/08/21 08:27 Pantoprazole 40 Mg Tab PO 07/07/21 20:59 40 mg BID MARCK Administration Protocol Rosuvastatin Calcium 10 mg 06/08/21 09:00 06/08/21 08:27 Rosuvastatin Calcium 10 Mg Tab PO 07/08/21 08:59 10 mg QAM MARCK Administration NPO Date Last Intake of Fluids: 06/07/21 Time Last Intake of Fluids: 21:00 Last Intake of Fluids Comment: sip of water 0830 w/meds Date Last Intake of Solids: 06/07/21 Time Last Intake of Solids: 17:30 Past Medical History Medical History Anxiety Friedman esophagus HLD (hyperlipidemia) HTN (hypertension) Lumbar radiculopathy Morbid obesity T2DM (type 2 diabetes mellitus) Past Family History Family History Father Myocardial infarction Past Surgical History Surgical History History of cholecystectomy History of esophagogastroduodenoscopy (EGD) barretts Social History Smoking Status: Never smoker Smoking cigarettes per day: 1/2 snuff a day Do You Dip or Chew Tobacco: Yes Hx Alcohol Use: No Hx Substance Use: No Physical Exam Vital Signs Last Vital Signs Temp 37.1 C 06/08/21 09:54 Pulse 74 06/08/21 09:54 Resp 18 06/08/21 09:54 BP 164/105 H 06/08/21 09:54 Pulse Ox 97 06/08/21 09:54 Testing Laboratory Results 06/07/21 16:30 06/07/21 16:30 PT 10.3 Seconds (9.0-12.0) 06/07/21 11:20 INR 1.0 (0.9-1.1) 06/07/21 11:20 APTT 24.3 Seconds (21.0-31.0) 06/07/21 11:20 Blood Type O Positive 06/08/21 05:28 Antibody Screen NEGATIVE 06/08/21 05:28 Electrocardiogram Date: 06/07/21 Findings: + NSR @ Chest X-Ray Date: 06/07/21 IMPRESSION: Low lung volumes. No acute process within the chest.
--- NOTE | 2021-06-08 10:15 | History & Physical Bridge Note ---
Date of Service June 08, 2021 History & Physical Bridge Note I have examined the patient, reviewed the History & Physical and in the interval since the performance of the History & Physical I have noted the following changes of clinical significance: no changes noted Lumbar decompression and fusion L4-L5, possible L5-S1
[2021-06-08] MEDS ORDERED: ONDANSETRON INJ 2 MG/ML 2 ML VIAL IV PRN ×2 (10:23→14:41)
[2021-06-08] MEDS ORDERED: fentaNYL citrate 100 MCG/2 ML VIAL IV PRN (10:23)
[2021-06-08] MEDS ORDERED: ePHEDrine sulfate 50 MG/ML AMP IV PRN (10:23)
[2021-06-08] MEDS ORDERED: HYDROmorphone INJ 1 MG/ML SYRINGE IV PRN (10:23)
[2021-06-08] MEDS ORDERED: ATROPINE SULFATE 0.1 MG/ML 10ML SYR IV PRN (10:23)
[2021-06-08] MEDS ORDERED: BUPIVACAINE/EPINEPHRINE 0.25% 1:200,000 30 ML VIAL ONE (10:37)
[2021-06-08] MEDS ORDERED: ceFAZolin 330 MG/ML 1 GM VIAL ONE (10:37)
[2021-06-08] MEDS: INSULIN ASPART PER UNIT SC SCH ×4 (10:50→20:48)
[2021-06-08] MEDS ORDERED: ALBUMIN HUMAN 5% 12.5 GM/250 ML VIAL IV ONE (11:04)
[2021-06-08] MEDS ORDERED: SUGAMMADEX SODIUM 200 MG/2 ML VIAL IV ONE (11:04)
[2021-06-08] MEDS ORDERED: FLOSEAL HEMOSTATIC MATRIX 10ML TOP ONE (11:38)
[2021-06-08] MEDS ORDERED: LIDOCAINE 2% 2 ML VIAL/AMP(20MG/ML) INFIL ONE (11:55)
[2021-06-08] MEDS ORDERED: ePHEDrine sulfate 50 MG/ML AMP ONE (11:55)
[2021-06-08] MEDS ORDERED: ONDANSETRON INJ 2 MG/ML 2 ML VIAL ONE (11:55)
[2021-06-08] MEDS ORDERED: PROPOFOL IV EMULSION 10 MG/ML 20 ML VIAL IV ONE (11:55)
[2021-06-08] MEDS ORDERED: SUCCINYLCHOLINE CHLORIDE 20 MG/ML 10 ML VIAL IV ONE (11:55)
[2021-06-08] MEDS ORDERED: ROCURONIUM BROMIDE 10 MG/ML 5 ML VIAL IV ONE (11:55)
[2021-06-08] MEDS ORDERED: PHENYLEPHRINE HCL 10 MG/ML VIAL ONE (11:55)
[2021-06-08] MEDS ORDERED: GLYCOPYRROLATE 0.2 MG/ML VIAL ONE (11:55)
[2021-06-08] MEDS ORDERED: DEXAMETHASONE SOD INJ 4 MG/ML VIAL ONE (11:55)
[2021-06-08] MEDS ORDERED: KETOROLAC 30 MG/ML VIAL ONE (12:26)
--- NOTE | 2021-06-08 12:58 | Operative Report ---
Post Operative Report Pre & Post Diagnosis Operation Date: 06/08/21 10:05 Pre-Op Diagnosis: Recurrent disc herniation L4-5 with radiculopathy Morbid obesity Post-Op Diagnosis: Same I identified the patient and participated in the time-out.: Yes Procedure Operation Date: 06/08/21 10:05 Actual Procedures #1 revision decompression with bilateral medial facetectomies and foraminotomies L3-L4 L4-5. #2 posterior spinal fusion L4-5 per #3 placement posterior instrumentation L4-5. #4 interbody fusion L4-5 #5 placement of Spira 14 x 26 mm cage L4-5 per #6 placement locally harvested morselized autograft in the posterior gutters per #7 placement of I factor combined with V toss in the interbody space and posterior gutters. Surgeon Trung Mancilla, DO Case Operator Danilo Morton Estimated Blood Loss 100 Findings See Below Patient is 6 foot 2 inches tall weighing over 164 kg with a BMI in excess of 46. Patient's body habitus did create significant technical difficulty required deepest retractors longus instruments in order to perform his procedure. This at least 50% increased operative time. Specimens None Indications This is a 46-year-old male who presents with severe radiculopathy secondary recurrent disc herniation. He has presented with gross neurologic deficit and here for urgent decompression fusion. Description of Procedure Patient was met with identified informed consent obtained. Patient was then taken to the operative suite underwent patient placed in a prone position the [facility] top Brent frame. All bony prominences well-padded eyes inspected to ensure no external pressure placed upon the. This point lumbar spine was prepped and draped in the normal sterile fashion. Sharp dissection with the assistance of Bovie cartilage from down to and exposing the remaining lamina and transverse processes of L4-L5 bilaterally. From a caudal cephalad fashion revision complete laminectomy L4 partial laminectomy of L3 was performed including bilateral medial facetectomies and foraminotomies addressing stenosis. There is evidence of massive disc herniation free fragment on the right under the L5 nerve root. This was removed in its entirety. Pedicle screws were then placed with the assistance of fluoroscopy the proper sized zak placed. By way of a transforaminal portion of right complete discectomy of L4-L5 with formed endplates curetted to subcortical bleeding bone and a 14 x 26 mm Spira cage filled I factor tapped in position. The rods then compressed locked in final position bilaterally. The transverse processes of L4-L5 burred to subcortically bone. I factor combined with Vitoss and locally harvested morselized autograft was placed in the posterior gutters. 15 round AGA drain inserted. The incision was then closed with 1 Vicryl the fascia 2-0 Vicryl subcutaneously and 4 Monocryl for final skin closure. Steri-Strips dressings placed. Patient will continue PACU stable condition. Please note spinal cord monitoring was utilized at the procedure no changes noted. Lastly Danilo Morton was present at the entire surgery and while the patient positioning complex portions of the surgery and fascial closure. I attest to the content of the Intraoperative Record and any orders documented therein. Any exceptions are noted below.
--- NOTE | 2021-06-08 13:31 | Fluoroscopy Report ---
FL lumbar spine 2-3V CLINICAL HISTORY: L4-S1 LUMBAR REVISION COMPARISON STUDY: Lumbar spine MRI June 07, 2021. FLUOROSCOPY TIME: 33 seconds. FLUOROSCOPIC IMAGES: 2 FINDINGS: Fluoroscopy was provided during L4-L5 discectomy with interbody spacer placement. Posterior decompression is noted. Bilateral pedicle screws at the L4 and L5 levels are present. IMPRESSION: Fluoroscopy provided during posterior decompression with L4-L5 discectomy and bilateral p edicle screw fusion. ACT 112: Negative or not required by law. Electronically signed by: Emerson Callahan M.D. 06/08/2021 1:29 PM
--- NOTE | 2021-06-08 13:56 | Anesthesiology Progress Note ---
Date of Service June 08, 2021 Anesthesia Post Procedure Vital Signs Vital Signs: Temp Pulse Pulse Pulse Resp BP BP 06/08/21 13:50 100 H 13 163/97 H 06/08/21 13:40 82 12 146/81 H 06/08/21 13:30 81 12 129/85 06/08/21 13:22 36.4 C L 88 10 L 155/94 H 06/08/21 09:54 37.1 C 74 18 164/105 H 06/08/21 07:35 36.6 C 68 18 163/98 H 06/07/21 21:45 36.4 C L 76 18 159/97 H 06/07/21 16:10 36.9 C 75 18 167/112 H 06/07/21 14:00 86 14 170/101 H Pulse Ox 06/08/21 13:50 96 06/08/21 13:40 97 06/08/21 13:30 94 06/08/21 13:22 99 06/08/21 09:54 97 06/08/21 07:35 96 06/07/21 21:45 96 06/07/21 16:10 99 06/07/21 14:00 93 Pain Intensity Back: Pain Intensity: 10 Transfer of Care Handoff Completed per policy Notes Mental Status: alert / awake / arousable and participated in evaluation Patient Amnestic to Procedure: Yes Nausea / Vomiting: adequately controlled Pain: adequately controlled Airway Patency, RR, SpO2: stable & adequate BP & HR: stable & adequate Hydration State: stable & adequate Anesthetic Complications: no major complications apparent and Pt Satisfied with anesthetic care
[2021-06-08] MEDS ORDERED: LABETALOL HCL IV 5 MG/ML 20ML IV STA (13:58)
[2021-06-08] MEDS ORDERED: MAGNESIUM HYDROXIDE SUSP 30 ML UDC PO PRN (14:41)
[2021-06-08] MEDS ORDERED: hydrOXYzine HCl 25 MG TAB PO PRN (14:41)
[2021-06-08] MEDS ORDERED: METOCLOPRAMIDE HCL INJ 5 MG/ML 2 ML VIAL IV PRN (14:41)
[2021-06-08] MEDS ORDERED: diphenhydrAMINE Capsule 25 MG CAP PO PRN (14:41)
[2021-06-08] MEDS ORDERED: LORazepam 0.5 MG TAB PO PRN (14:41)
[2021-06-08] MEDS ORDERED: SOD PHOSPHATE/SOD BIPHOSPHATE ENEMA 132 ML BTL PR PRN (14:41)
[2021-06-08] MEDS ORDERED: oxyCODONE HCL IR 5 MG TAB (IMMEDIATE RELEASE) PO PRN (14:41)
[2021-06-08] MEDS ORDERED: DO NOT ADMINISTER FLU VACCINE PRN (14:41)
[2021-06-08] MEDS ORDERED: PROMETHAZINE HCL 12.5 MG in SODIUM CHLORIDE 0.9% 50 ML IV PRN (14:41)
[2021-06-08] MEDS ORDERED: ACETAMINOPHEN 1,000 MG/100 ML VIAL IV PRN (14:41)
[2021-06-08] MEDS ORDERED: ONDANSETRON 4 MG OD TAB PO PRN (14:41)
[2021-06-08] MEDS ORDERED: ACETAMINOPHEN 500 MG TAB PO PRN (14:41)
[2021-06-08] MEDS ORDERED: DO NOT ADMINISTER PNEUMOCOCCAL VACCINE PRN (14:41)
[2021-06-08] MEDS ORDERED: LORazepam 2 MG/1 ML VIAL IV PRN (14:41)
[2021-06-08] MEDS ORDERED: NALOXONE HCL 0.4 MG/1 ML VIAL/CARP IV PRN (14:41)
[2021-06-08] MEDS ORDERED: bisacodyL 10 MG SUPP PR PRN (14:41)
[2021-06-08] MEDS ORDERED: ALUMINUM/MAGNESIUM SUSP 30 ML UDC PO PRN (14:41)
[2021-06-08] MEDS ORDERED: FAMOTIDINE 20 MG TAB PO PRN (14:41)
[2021-06-08] MEDS ORDERED: TELMISARTAN 40 MG TAB PO SCH ×2 (16:00)
[2021-06-08] MEDS ORDERED: hydroCHLOROthiazide 25 MG TAB PO ONE (17:00)
[2021-06-08] MEDS ORDERED: Nursing to Pharmacy Communication SCH (17:30)
[2021-06-08] MEDS: METOPROLOL TARTRATE 100 MG TAB PO SCH (17:51)
[2021-06-08] MEDS: TELMISARTAN 40 MG TAB PO SCH (17:51)
--- NOTE | 2021-06-08 18:31 | Hospitalist Progress Note ---
Date of Service June 08, 2021 Assessment & Plan (1) Lumbar disc herniation with radiculopathy: (2) T2DM (type 2 diabetes mellitus): (3) HTN (hypertension): (4) Anxiety: (5) Morbid obesity: Plan: This is a 46-year-old male who has significant past medical history of diet- controlled T2DM, HTN, hypertriglyceridemia, obesity, RLS, anxiety who presents to ED secondary to severe back pain. Lumbar disc herniation with radiculopathy Lumbar spine MRI in ED revealed focal right disc bulge at L4-L5 Patient undergo surgical intervention tomorrow s/p OR today with ortho, further management per primary service Poorly controlled HTN -resume home medications: Metoprolol 100mg BID, Telmisartan 80mg daily, HCTZ 12.5mg daily T2DM Diet controlled A1c 7.0 05/2021 Accu-Cheks with NovoLog per protocol Anxiety Continue BuSpar GERD Friedman's Continue PPI DVT ppx: SCD/TEDS per primary Dispo: MedSurg PCP: Daryl Souza FULL CODE Admission and Anticipated Discharge Date Admission Date: June 07, 2021 Subjective Feels well BP elevated, he did not receive most of his BP medications today Reports pain and paresthesia is completely resolved Physical Exam Physical Exam: laying in bed, pleasant and comfortable Respiratory: breathing comfortably on room air, no wheezing/rhonchi/rales Cardiovascular: mildly tachycardic, no murmurs/rubs/gallops Gastrointestinal (Abdomen): soft, non tender Genitourinary: crespo draining clear yellow urine Results & Data Results & Data ([facility]) Vital Signs (Past 12 Hours) Vital Signs Temp Pulse Pulse Resp BP BP Pulse Ox 06/08/21 17:33 37.0 C 103 H 18 169/113 H 95 06/08/21 16:48 36.7 C 101 H 16 159/107 H 94 06/08/21 15:40 36.8 C 98 H 16 155/100 H 93 06/08/21 15:11 36.9 C 95 H 16 154/100 H 94 06/08/21 14:40 37.1 C 94 H 16 152/95 H 94 06/08/21 14:30 36.3 C L 94 H 12 144/88 H 95 06/08/21 14:20 87 12 134/84 98 06/08/21 14:10 92 H 18 142/86 H 95 06/08/21 14:00 106 H 15 173/103 H 99 06/08/21 13:50 100 H 13 163/97 H 96 06/08/21 13:40 82 12 146/81 H 97 06/08/21 13:30 81 12 129/85 94 06/08/21 13:22 36.4 C L 88 10 L 155/94 H 99 06/08/21 09:54 37.1 C 74 18 164/105 H 97 06/08/21 07:35 36.6 C 68 18 163/98 H 96 Medications Administered Current Inpatient Medications Al Hydrox/Mg Hydrox/Simethicone (Aluminum/Magnesium Susp 30 Ml Udc) 30 ml PO Q6H PRN PRN Reason: Dyspepsia Stop: 07/08/21 14:40 Bisacodyl (Bisacodyl 10 Mg Supp) 10 mg OK DAILY PRN PRN Reason: Constipation Stop: 07/08/21 14:40 Dextrose (Dextrose 50% 50 Ml Syringe) 25 - 50 ml IV UD PRN; Protocol PRN Reason: Hypoglycemia Protocol Stop: 07/07/21 16:14 Diphenhydramine HCl (Diphenhydramine Capsule 25 Mg Cap) 25 mg PO Q6H PRN PRN Reason: Allergic Rhinitis/Insomnia Stop: 07/08/21 14:40 Famotidine (Famotidine 20 Mg Tab) 20 mg PO Q12H PRN PRN Reason: Dyspepsia Stop: 07/08/21 14:40 Gabapentin (Gabapentin 100 Mg Cap) 100 mg PO TID MARCK Stop: 07/07/21 20:59 Last Admin: 06/08/21 15:25 Dose: 100 mg Documented by: Glucagon (Glucagon For Inj 1 Mg Vial) 1 mg SQ UD PRN; Protocol PRN Reason: Hypoglycemia Protocol Stop: 07/07/21 16:14 Glucose (Glucose 10 Tabs/Tube) 4 - 8 tabs PO UD PRN; Protocol PRN Reason: Hypoglycemia Protocol Stop: 07/07/21 16:14 Glucose (Glucose 40% Gel 15 Gm Tube) 15 - 30 gm PO UD PRN; Protocol PRN Reason: Hypoglycemia Protocol Stop: 07/07/21 16:14 Hydrochlorothiazide (Hydrochlorothiazide 25 Mg Tab) 12.5 mg PO DAILY [facility] Stop: 07/09/21 08:59 Lactated Ringer's (Lr) 1,000 mls @ 150 mls/hr IV .Q6H40M [facility] Stop: 07/08/21 14:40 Last Admin: 06/08/21 15:27 Dose: 150 mls/hr Documented by: Promethazine HCl 12.5 mg/ (Sodium Chloride) 50.5 mls @ 202 mls/hr IV Q6H PRN PRN Reason: Nausea &/or Vomiting Stop: 07/08/21 14:40 Acetaminophen (Ofirmev) 1,000 mg in 100 mls @ 400 mls/hr IV Q8H PRN PRN Reason: Pain Rating 1-3 & Pre PT Stop: 06/11/21 14:40 Influenza Virus Vaccine Quadrival (Do Not Administer Flu Vaccine) 1 ea N/A PRN PRN PRN Reason: Notification Stop: 07/08/21 14:40 Insulin Aspart (Insulin Aspart Per Unit) 0 units SC ACHS [facility] Stop: 07/07/21 16:29 Last Admin: 06/08/21 17:16 Dose: Not Given Documented by: Magnesium Hydroxide (Magnesium Hydroxide Susp 30 Ml Udc) 30 ml PO Q24H PRN PRN Reason: Constipation Stop: 07/08/21 14:40 Metoprolol Tartrate (Metoprolol Tartrate 100 Mg Tab) 100 mg PO BID@0800,1600 [facility] Stop: 07/08/21 17:29 Last Admin: 06/08/21 17:51 Dose: 100 mg Documented by: Miscellaneous (Carbohydrates For Hypoglycemia ) 15 - 30 gm PO UD PRN PRN Reason: Hypoglycemia Protocol Stop: 07/07/21 16:14 Pantoprazole Sodium (Pantoprazole 40 Mg Tab) 40 mg PO BID [facility]; Protocol Stop: 07/07/21 20:59 Last Admin: 06/08/21 08:27 Dose: 40 mg Documented by: Pneumococcal Polyvalent Vaccine (Do Not Administer Pneumococcal Vaccine) 1 ea N/A PRN PRN PRN Reason: Notification Stop: 07/08/21 14:40 Polyethylene Glycol (Polyethylene (Miralax) 17 Gm Pack) 17 gm PO Q6 [facility] Stop: 07/09/21 05:59 Rosuvastatin Calcium (Rosuvastatin Calcium 10 Mg Tab) 10 mg PO QAM [facility] Stop: 07/08/21 08:59 Last Admin: 06/08/21 08:27 Dose: 10 mg Documented by: Senna/Docusate Sodium (Docusate Sodium/Senna 50/8.6mg Tab) 2 tab PO HS [facility] Stop: 07/08/21 20:59 Sodium Biphosphate/Sodium Phosphate (Sod Phosphate/Sod Biphosphate Enema 132 Ml Btl) 132 ml OK ONE PRN PRN Reason: Constipation Stop: 07/08/21 14:40 Telmisartan (Telmisartan 40 Mg Tab) 80 mg PO PM [facility] Stop: 07/08/21 16:59 Last Admin: 06/08/21 17:51 Dose: 80 mg Documented by: Tramadol HCl (Tramadol Hcl 50 Mg Tablet) 50 - 100 mg PO Q4H PRN PRN Reason: Moderate-Severe pain & Pre PT Stop: 07/08/21 14:40
--- NOTE | 2021-06-08 20:44 | Electrocardiogram Report ---
Test Reason : Blood Pressure : / mmHG Vent. Rate : 071 BPM Atrial Rate : 071 BPM P-R Int : 180 ms QRS Dur : 110 ms QT Int : 400 ms P-R-T Axes : 032 -11 021 degrees QTc Int : 434 ms Normal sinus rhythm Normal ECG When compared with ECG of 19-DEC-2016 10:06, No significant change was found Confirmed by Elder Sanz ([id number]) on 06/08/2021 8:44:05 PM Referred By: Trung Mancilla Confirmed By:Elder Sanz
[2021-06-08] MEDS: DOCUSATE SODIUM/SENNA 50/8.6MG TAB PO SCH (20:46)
[2021-06-08] MEDS: traMADol HCL 50 MG TABLET PO PRN (20:47)
[2021-06-08] MEDS ORDERED: busPIRone 7.5 MG TAB PO SCH (21:00)
[2021-06-08] MEDS ORDERED: METOPROLOL TARTRATE 100 MG TAB PO SCH (21:00)
[2021-06-09] MEDS: LACTATED RINGER'S 1,000 ML IV SCH (03:41)
[2021-06-09] MEDS: POLYETHYLENE (MIRALAX) 17 GM PACK PO SCH ×3 (05:47→17:08)
[2021-06-09 06:06] LABS: Basophils # (auto) 0.01 K/uL (0-0.2); Basophils % (auto) 0.1 %; Hematocrit (blood only) 37.5 % (42-52); Hemoglobin 12.9 g/dL (14.0-18.0); Immature Granulocytes # (auto) 0.02 K/uL (0.00-0.02); Immature Granulocytes % (auto) 0.2 %; Lymphocytes # (auto) 1.25 K/uL (1.2-3.4); Lymphocytes % (auto) 10.3 %; Mean Corpuscular Hemoglobin 29.5 pg (25-34); Mean Corpuscular Hgb Conc 34.4 g/dL (32-36); Mean Corpuscular Volume 85.8 fL (80-100); Mean Platelet Volume 10.1 fL (7.4-10.4); Monocytes # (auto) 1.01 K/uL (0.11-0.59); Monocytes % (auto) 8.3 %; Neutrophils # (auto) 9.83 K/uL (1.4-6.5); Neutrophils % (auto) 81.1 %; Platelet Count 216 K/uL (130-400); RDW Coefficient of Variation 12.9 % (11.5-14.5); RDW Standard Deviation 40.9 fL (36.4-46.3); Red Blood Count 4.37 M/uL (4.7-6.1); White Blood Count 12.12 K/uL (4.8-10.8)
[2021-06-09 06:22] LABS: BUN Creatinine Ratio 14.6 (10-20); Calcium 8.9 mg/dl (8.5-10.1); Creatinine Clr Calc Pharmacy 170.4 ml/min; Est GFR (African American) 119.7 ml/min; Est GFR (Non-African American) 103.3 ml/min; Potassium 3.9 mmol/L (3.5-5.1)
[2021-06-09] MEDS: ROSUVASTATIN CALCIUM 10 MG TAB PO SCH (08:01)
[2021-06-09] MEDS: PANTOprazole 40 MG TAB PO SCH ×2 (08:01→21:15)
[2021-06-09] MEDS: GABAPENTIN 100 MG CAP PO SCH ×3 (08:01→21:16)
[2021-06-09] MEDS: METOPROLOL TARTRATE 100 MG TAB PO SCH ×2 (08:02→16:23)
[2021-06-09] MEDS: busPIRone 7.5 MG TAB PO SCH ×2 (08:02→16:23)
[2021-06-09] MEDS: hydroCHLOROthiazide 25 MG TAB PO SCH (08:02)
[2021-06-09] MEDS: INSULIN ASPART PER UNIT SC SCH ×4 (08:28→21:16)
--- NOTE | 2021-06-09 08:43 | Orthopedic Progress Note ---
Date of Service June 09, 2021 Assessment & Plan (1) Lumbar disc herniation with radiculopathy: Plan: At this time we will continue physical therapy monitor his AGA output hopefully discharge home the next few days. Admission and Anticipated Discharge Date Admission Date: June 07, 2021 Subjective Back pain controlled leg pain markedly improved Physical Exam Physical Exam: Patient is in the chair at the bedside. Appears comfortable. Is good strength testing. Results & Data ([facility]) Vital Signs (Past 12 Hours) Vital Signs Temp Pulse Resp BP Pulse Ox 06/09/21 08:18 36.9 C 66 16 134/89 97 06/09/21 03:38 36.9 C 81 17 132/77 96 06/08/21 23:09 36.9 C 97 H 17 151/88 H 97
[2021-06-09] MEDS: traMADol HCL 50 MG TABLET PO PRN ×2 (13:36→18:22)
--- NOTE | 2021-06-09 15:41 | Hospitalist Progress Note ---
Date of Service June 09, 2021 Assessment & Plan (1) Lumbar disc herniation with radiculopathy: (2) T2DM (type 2 diabetes mellitus): (3) HTN (hypertension): (4) Anxiety: (5) Morbid obesity: Plan: This is a 46-year-old male who has significant past medical history of diet- controlled T2DM, HTN, hypertriglyceridemia, obesity, RLS, anxiety who presents to ED secondary to severe back pain. Lumbar disc herniation with radiculopathy Lumbar spine MRI in ED revealed focal right disc bulge at L4-L5 Patient undergo surgical intervention tomorrow s/p OR 06/08 with ortho, further management per primary service Poorly controlled HTN -continue home medications: Metoprolol 100mg BID, Telmisartan 80mg daily, HCTZ 12.5mg daily T2DM Diet controlled A1c 7.0 05/2021 Accu-Cheks with NovoLog per protocol Constipation -miralax PRN Anxiety Continue BuSpar GERD Friedman's Continue PPI DVT ppx: SCD/TEDS per primary Dispo: Deric PCP: Daryl Souza FULL CODE Admission and Anticipated Discharge Date Admission Date: June 07, 2021 Subjective constipated this morning, now with BM BP better Feels well Still with drain Physical Exam Physical Exam: Obese, walking with walker, pleasant and no distress Respiratory: breathing comfortably on room air, no wheezing/rhonchi Cardiovascular: regular rate and rhythm, no murmurs/rubs/gallops Gastrointestinal (Abdomen): soft, non tender Musculoskeletal: no edema Skin: drain with minimal output Neurologic: ambulating with walker Results & Data Results & Data ([facility]) Vital Signs (Past 12 Hours) Vital Signs Temp Pulse Resp BP Pulse Ox 06/09/21 15:24 37.1 C 83 18 117/82 95 06/09/21 08:18 36.9 C 66 16 134/89 97 Laboratory Results Short CBC 06/09/21 Range/Units 05:53 WBC 12.12 H (4.8-10.8) K/uL Hgb 12.9 L (14.0-18.0) g/dL Hct 37.5 L (42-52) % Plt Count 216 (130-400) K/uL BMP 06/09/21 05:53 Sodium 138 Potassium 3.9 Chloride 106 Carbon Dioxide 24 BUN 13 Creatinine 0.89 Glucose 125 H Calcium 8.9 Medications Administered Current Inpatient Medications Al Hydrox/Mg Hydrox/Simethicone (Aluminum/Magnesium Susp 30 Ml Udc) 30 ml PO Q6H PRN PRN Reason: Dyspepsia Stop: 07/08/21 14:40 Bisacodyl (Bisacodyl 10 Mg Supp) 10 mg MA DAILY PRN PRN Reason: Constipation Stop: 07/08/21 14:40 Buspirone HCl (Buspirone 7.5 Mg Tab) 15 mg PO BID@0800,1600 [facility] Stop: 07/09/21 07:59 Last Admin: 06/09/21 08:02 Dose: 15 mg Documented by: Dextrose (Dextrose 50% 50 Ml Syringe) 25 - 50 ml IV UD PRN; Protocol PRN Reason: Hypoglycemia Protocol Stop: 07/07/21 16:14 Diphenhydramine HCl (Diphenhydramine Capsule 25 Mg Cap) 25 mg PO Q6H PRN PRN Reason: Allergic Rhinitis/Insomnia Stop: 07/08/21 14:40 Famotidine (Famotidine 20 Mg Tab) 20 mg PO Q12H PRN PRN Reason: Dyspepsia Stop: 07/08/21 14:40 Gabapentin (Gabapentin 100 Mg Cap) 100 mg PO TID [facility] Stop: 07/07/21 20:59 Last Admin: 06/09/21 13:45 Dose: 100 mg Documented by: Glucagon (Glucagon For Inj 1 Mg Vial) 1 mg SQ UD PRN; Protocol PRN Reason: Hypoglycemia Protocol Stop: 07/07/21 16:14 Glucose (Glucose 10 Tabs/Tube) 4 - 8 tabs PO UD PRN; Protocol PRN Reason: Hypoglycemia Protocol Stop: 07/07/21 16:14 Glucose (Glucose 40% Gel 15 Gm Tube) 15 - 30 gm PO UD PRN; Protocol PRN Reason: Hypoglycemia Protocol Stop: 07/07/21 16:14 Hydrochlorothiazide (Hydrochlorothiazide 25 Mg Tab) 12.5 mg PO DAILY [facility] Stop: 07/09/21 08:59 Last Admin: 06/09/21 08:02 Dose: 12.5 mg Documented by: Promethazine HCl 12.5 mg/ (Sodium Chloride) 50.5 mls @ 202 mls/hr IV Q6H PRN PRN Reason: Nausea &/or Vomiting Stop: 07/08/21 14:40 Acetaminophen (Ofirmev) 1,000 mg in 100 mls @ 400 mls/hr IV Q8H PRN PRN Reason: Pain Rating 1-3 & Pre PT Stop: 06/11/21 14:40 Influenza Virus Vaccine Quadrival (Do Not Administer Flu Vaccine) 1 ea N/A PRN PRN PRN Reason: Notification Stop: 07/08/21 14:40 Insulin Aspart (Insulin Aspart Per Unit) 0 units SC ACHS [facility] Stop: 07/07/21 16:29 Last Admin: 06/09/21 12:22 Dose: Not Given Documented by: Magnesium Hydroxide (Magnesium Hydroxide Susp 30 Ml Udc) 30 ml PO Q24H PRN PRN Reason: Constipation Stop: 07/08/21 14:40 Metoprolol Tartrate (Metoprolol Tartrate 100 Mg Tab) 100 mg PO BID@0800,1600 [facility] Stop: 07/08/21 17:29 Last Admin: 06/09/21 08:02 Dose: 100 mg Documented by: Miscellaneous (Carbohydrates For Hypoglycemia ) 15 - 30 gm PO UD PRN PRN Reason: Hypoglycemia Protocol Stop: 07/07/21 16:14 Pantoprazole Sodium (Pantoprazole 40 Mg Tab) 40 mg PO BID [facility]; Protocol Stop: 07/07/21 20:59 Last Admin: 06/09/21 08:01 Dose: 40 mg Documented by: Pneumococcal Polyvalent Vaccine (Do Not Administer Pneumococcal Vaccine) 1 ea N/A PRN PRN PRN Reason: Notification Stop: 07/08/21 14:40 Polyethylene Glycol (Polyethylene (Miralax) 17 Gm Pack) 17 gm PO Q6 [facility] Stop: 07/09/21 05:59 Last Admin: 06/09/21 12:23 Dose: 17 gm Documented by: Rosuvastatin Calcium (Rosuvastatin Calcium 10 Mg Tab) 10 mg PO QAM [facility] Stop: 07/08/21 08:59 Last Admin: 06/09/21 08:01 Dose: 10 mg Documented by: Senna/Docusate Sodium (Docusate Sodium/Senna 50/8.6mg Tab) 2 tab PO HS [facility] Stop: 07/08/21 20:59 Last Admin: 06/08/21 20:46 Dose: 2 tab Documented by: Sodium Biphosphate/Sodium Phosphate (Sod Phosphate/Sod Biphosphate Enema 132 Ml Btl) 132 ml MA ONE PRN PRN Reason: Constipation Stop: 07/08/21 14:40 Telmisartan (Telmisartan 40 Mg Tab) 80 mg PO PM [facility] Stop: 07/08/21 16:59 Last Admin: 06/08/21 17:51 Dose: 80 mg Documented by: Tramadol HCl (Tramadol Hcl 50 Mg Tablet) 50 - 100 mg PO Q4H PRN PRN Reason: Moderate-Severe pain & Pre PT Stop: 07/08/21 14:40 Last Admin: 06/09/21 13:36 Dose: 50 mg Documented by:
[2021-06-09] MEDS: DOCUSATE SODIUM/SENNA 50/8.6MG TAB PO SCH (21:12)
[2021-06-09] MEDS: TELMISARTAN 40 MG TAB PO SCH (21:13)
[2021-06-10] MEDS: POLYETHYLENE (MIRALAX) 17 GM PACK PO SCH ×3 (00:22→10:09)
[2021-06-10] MEDS: traMADol HCL 50 MG TABLET PO PRN ×2 (01:51→10:14)
[2021-06-10] MEDS: INSULIN ASPART PER UNIT SC SCH ×2 (08:31→12:08)
[2021-06-10] MEDS: METOPROLOL TARTRATE 100 MG TAB PO SCH (08:33)
[2021-06-10] MEDS: GABAPENTIN 100 MG CAP PO SCH ×2 (08:34→13:41)
[2021-06-10] MEDS: hydroCHLOROthiazide 25 MG TAB PO SCH (08:34)
[2021-06-10] MEDS: ROSUVASTATIN CALCIUM 10 MG TAB PO SCH (08:34)
[2021-06-10] MEDS: PANTOprazole 40 MG TAB PO SCH (08:35)
[2021-06-10] MEDS: busPIRone 7.5 MG TAB PO SCH (08:35)
[2021-06-10] MEDS ORDERED: LORazepam 1 MG TAB PO STA (09:06)
--- NOTE | 2021-06-10 11:35 | Discharge Summary ---
Date of Service June 10, 2021 Admission HPI Per Admitting Provider This is a 46-year-old male who presents with marked on status of the past several months. Describes pain involving the right buttock posterior thigh extending the dorsum of his right foot. There is associated numbness and weakness. Left lower extremity is essentially asymptomatic. He is no longer able to ambulate any significant distance. He is taking multiple oral medications without success. He said 1 epidural injection without any improvement. Does have a history of undergoing a laminectomy in the lumbar spine approximately 7 years ago. He has been on disability since that time. Principal Diagnosis Recurrent discrimination Discharge Data Allergies Allergy/AdvReac Type Severity Reaction Status Date / Time prednisone Allergy Severe INCREASED Verified 06/07/21 14:50 HEART RATE,ANXIETY Sulfa (Sulfonamide Allergy Severe INCREASED Verified 06/07/21 14:50 Antibiotics) HEARTRATE/STOMACH SICKNESS citalopram Allergy Mild Unknown Verified 06/07/21 14:50 Consultations 06/07/21 14:58 ED Decision to Admit Stat Procedures Performed Operation Date: 06/08/21 10:05 Actual Procedures p L4-L5 Lumbar Revision, Spinal Cord Monitoring(Not Applicable) - Trung Mancilla DO Ordered Studies 06/07/21 11:08 MR lumbar spine wo con Stat 06/08/21 10:05 FL lumbar spine 2-3V Routine Hospital Course (1) Lumbar disc herniation with radiculopathy: Patient was admitted with severe radiculopathy and neuro deficit. He underwent revision decompression fusion following day. Tolerated the procedure well and was taken to orthopedic floor. Postop day #1 symptoms are markedly improved. He progressed to postop day #2. Excellent strength testing. AGA drain decreasing appropriately. Pain well controlled. Subsequent discharge home. Discharge orders instructions from the chart for further review. Total Time Total Time Spent Total Time Spent (In Minutes): 20 minutes Discharge Plan Discharge Items Patient Disposition: Home - Self-Care Reason For Visit: LUMBAR RADICULOPATHY Discharge Diagnosis: Lumbar radiculopathy secondary to recurrent disc herniation Activity: Per Instructions section Non-emergency contact: Primary Care Provider Call non-emergency contact if: you have any medication questions Follow-up/Referrals: Daryl Souza DO [Primary Care Provider] - Diet: Regular Addtl Attending Provider Instructions: ACTIVITY RECOMMENDATIONS: SELF CARE INSTRUCTIONS AFTER THORACIC/LUMBAR FUSIONS 1. You may walk to your tolerance. It is good exercise for your legs and back. Expect some back and intermittent leg aches and pains. 2. You may perform "counter-top" level activities (make a sandwich, scarlett with a project, etc.). 3. No bending or lifting of more than 10 pounds or back twisting of any nature (roll like a log when turning in bed). 4. You may ride in a car for 20-30 minutes at a time. No driving until after your first visit with your doctor. 5. Frequent changes of position and restricting sitting to 30 minutes at a time will help limit the amount of back spasms and stiffness you may experience. 6. You may discontinue the use of ambulatory aids (cane, crutches, etc.) once your strength and confidence allow. 7. You may computer engineering technologist the shower and let water strike your incision when you arrive home at least once daily. Do not take a tub bath, sit in a hot tub or go into a swimming pool until after your first recheck in the office. SPECIAL CARE INSTRUCTIONS: VERY IMPORTANT TO READ AND REVIEW A. Your surgical incision has been closed with a cosmetic suture under the skin that will dissolve in about 6 weeks. In 14 days, you can use a pair of clean scissors and cut the suture that is left outside of the skin at the ends of your incision. 1. The small skin tapes can be removed 7 days after surgery if they have not fallen off by that point. 2. You may keep the wound open to air as much as possible to promote healing after post-op day number 5 unless told otherwise by your doctor. 3. If you think the wound looks like it is becoming infected (redness or worsening drainage) and/or you are experiencing fever, chill or worsening back pain and muscle spasms, contact the office so that we may evaluate you as soon as possible. B. Complications are uncommon, but please contact us if you have any signs or symptoms of: 1. wound infection (fever higher than 102.5 degrees F, redness, separation of wound, drainage, or increasing pain from the incision) 2. blood clots in legs (pain, swelling, redness and warmth in legs) 3. urinary tract infection (fever higher than 102.5 degrees F, burning upon urination or increased frequency of urination) 4. nerve problems (inability to walk on your toes or heels, numbness, loss of bowel or bladder control) 5. any other symptoms that concern you C. Please call the office at if you have any concerns or questions about your operation or recovery. D. No smoking! Smoking drastically decreases the chance of a solid fusion. E. Do not take any anti-inflammatory medications (Indocin, Advil, Motrin, Aspirin, Naprosyn, etc.) as these may inhibit the chance of a solid fusion. Tylenol is okay to take for pain. MANAGING PAIN AFTER SPINAL SURGERY 1. Narcotic medication is intended for short-term use and will be provided for surgical pain. Surgical pain usually lasts for a period of 4-6 weeks. Narcotic medication includes Percocet, Vicodin, Darvocet, Tylenol #3 or Lortab. 2. Longer-term pain is more appropriately treated with non-narcotic medication such as Tylenol ES. 3. Muscle spasm is not appropriately treated with narcotics. Muscle relaxers such as Soma, Flexeril or Skelaxin can be used along with Tylenol ES. 4. Remember that we all live with some "aches and pains". This is not unusual or uncommon after an injury or as we get older. a. Back pain is expected and may include muscle spasms for 4 to 6 weeks after surgery. The pain should gradually improve. If the pain worsens for no apparent reason, please contact the office. b. Intermittent leg pain may also be experienced and should not be concerned about unless it worsens for no apparent reason. If so, please contact the office. 5. We will provide appropriate medication within the normal guidelines of their prescribed use. We will also be very cautious and aware of potential abuse and extended duration of patients' medication needs. a. Pain medications are for your comfort and to assist with sleep and rest so that the tissue can heal. They are not provided in order to return to normal activity and should not be used through the day. To do so or worsening pain at night can result from ongoing tissue damage and development of tolerance to the prescribed medicine. 6. Please allow 2-3 days to process refills. Prescriptions will not be mailed but must be picked up at the office. FOLLOW UP VISIT: Keep your scheduled follow-up appointment. Any questions, please call the office at . Pending Studies at Discharge: No Stand-Alone Forms: My [facility], Smoking Cessation Medications and DC Order Prescriptions: New tramadol 50 mg tablet 50 mg PO Q6H PRN (Reason: pain, moderate) Qty: 30 RF: 0 oxycodone 5 mg tablet 5 mg PO Q6H PRN (Reason: pain, severe) Qty: 30 RF: 0 Continued metoprolol succinate 100 mg tablet extended release 24 hr 100 mg PO BID RF: 0 omeprazole 40 mg capsule,delayed release(DR/EC) 40 mg PO BID RF: 0 oxycodone-acetaminophen 10-325 mg tablet 1 tab PO BID PRN (Reason: Pain) RF: 0 telmisartan 80 mg tablet 80 mg PO DAILY@1600 RF: 0 hydrochlorothiazide 12.5 mg capsule 12.5 mg PO QAM RF: 0 gabapentin 100 mg capsule 100 mg PO TID RF: 0 buspirone 15 mg tablet 15 mg PO BID RF: 0 rosuvastatin 10 mg tablet 10 mg PO QAM RF: 0 Discontinued naproxen 500 mg tablet 500 mg PO BID PRN (Reason: pain) Qty: 20 RF: 0 Discharge Orders: Discharge Order (Routine); Ordered 06/10/21 Ordered By: Trung Mancilla Admission Data Admit Date/Time: 06/07/21 15:04 Attending Provider: Trung Mancilla Admit Provider: Trung Mancilla Primary Care Provider: Daryl Souza Other Providers: Baldo Zamudio ; Trung Mancilla
--- NOTE | 2021-06-10 13:17 | Hospitalist Progress Note ---
Date of Service June 10, 2021 Assessment & Plan (1) Lumbar disc herniation with radiculopathy: (2) T2DM (type 2 diabetes mellitus): (3) HTN (hypertension): (4) Anxiety: (5) Morbid obesity: Plan: This is a 46-year-old male who has significant past medical history of diet- controlled T2DM, HTN, hypertriglyceridemia, obesity, RLS, anxiety who presents to ED secondary to severe back pain. Lumbar disc herniation with radiculopathy Lumbar spine MRI in ED revealed focal right disc bulge at L4-L5 Patient undergo surgical intervention tomorrow s/p OR 06/08 with ortho, further management per primary service Poorly controlled HTN -continue home medications: Metoprolol 100mg BID, Telmisartan 80mg daily, HCTZ 12.5mg daily T2DM Diet controlled A1c 7.0 05/2021 Accu-Cheks with NovoLog per protocol Constipation -miralax PRN Anxiety Continue BuSpar ativan 1mg TID PRN for anxiety GERD Friedman's Continue PPI DVT ppx: SCD/TEDS per primary Dispo: MedSurg PCP: Daryl Souza FULL CODE Patient is medically stable for discharge. Disposition per primary service Admission and Anticipated Discharge Date Admission Date: June 07, 2021 Subjective Was anxious this morning but now feels well after receiving his home ativan Physical Exam Physical Exam: sitting in chair, pleasant and comfortable Respiratory: breathing comfortably on room air, no accessory muscle use Cardiovascular: regular rate and rhythm on telemetry Musculoskeletal: no edema Results & Data Results & Data ([facility]) Vital Signs (Past 12 Hours) Vital Signs Temp Pulse Pulse Resp BP Pulse Ox 06/10/21 11:41 36.7 C 96 H 81 18 145/93 H 95 06/10/21 07:42 36.7 C 96 H 18 145/93 H 95 Medications Administered Current Inpatient Medications Al Hydrox/Mg Hydrox/Simethicone (Aluminum/Magnesium Susp 30 Ml Udc) 30 ml PO Q6H PRN PRN Reason: Dyspepsia Stop: 07/08/21 14:40 Bisacodyl (Bisacodyl 10 Mg Supp) 10 mg TX DAILY PRN PRN Reason: Constipation Stop: 07/08/21 14:40 Buspirone HCl (Buspirone 7.5 Mg Tab) 15 mg PO BID@0800,1600 [facility] Stop: 07/09/21 07:59 Last Admin: 06/10/21 08:35 Dose: 15 mg Documented by: Dextrose (Dextrose 50% 50 Ml Syringe) 25 - 50 ml IV UD PRN; Protocol PRN Reason: Hypoglycemia Protocol Stop: 07/07/21 16:14 Diphenhydramine HCl (Diphenhydramine Capsule 25 Mg Cap) 25 mg PO Q6H PRN PRN Reason: Allergic Rhinitis/Insomnia Stop: 07/08/21 14:40 Famotidine (Famotidine 20 Mg Tab) 20 mg PO Q12H PRN PRN Reason: Dyspepsia Stop: 07/08/21 14:40 Gabapentin (Gabapentin 100 Mg Cap) 100 mg PO TID [facility] Stop: 07/07/21 20:59 Last Admin: 06/10/21 08:34 Dose: 100 mg Documented by: Glucagon (Glucagon For Inj 1 Mg Vial) 1 mg SQ UD PRN; Protocol PRN Reason: Hypoglycemia Protocol Stop: 07/07/21 16:14 Glucose (Glucose 10 Tabs/Tube) 4 - 8 tabs PO UD PRN; Protocol PRN Reason: Hypoglycemia Protocol Stop: 07/07/21 16:14 Glucose (Glucose 40% Gel 15 Gm Tube) 15 - 30 gm PO UD PRN; Protocol PRN Reason: Hypoglycemia Protocol Stop: 07/07/21 16:14 Hydrochlorothiazide (Hydrochlorothiazide 25 Mg Tab) 12.5 mg PO DAILY [facility] Stop: 07/09/21 08:59 Last Admin: 06/10/21 08:34 Dose: 12.5 mg Documented by: Promethazine HCl 12.5 mg/ (Sodium Chloride) 50.5 mls @ 202 mls/hr IV Q6H PRN PRN Reason: Nausea &/or Vomiting Stop: 07/08/21 14:40 Acetaminophen (Ofirmev) 1,000 mg in 100 mls @ 400 mls/hr IV Q8H PRN PRN Reason: Pain Rating 1-3 & Pre PT Stop: 06/11/21 14:40 Influenza Virus Vaccine Quadrival (Do Not Administer Flu Vaccine) 1 ea N/A PRN PRN PRN Reason: Notification Stop: 07/08/21 14:40 Insulin Aspart (Insulin Aspart Per Unit) 0 units SC ACHS [facility] Stop: 07/07/21 16:29 Last Admin: 06/10/21 12:08 Dose: Not Given Documented by: Magnesium Hydroxide (Magnesium Hydroxide Susp 30 Ml Udc) 30 ml PO Q24H PRN PRN Reason: Constipation Stop: 07/08/21 14:40 Metoprolol Tartrate (Metoprolol Tartrate 100 Mg Tab) 100 mg PO BID@0800,1600 [facility] Stop: 07/08/21 17:29 Last Admin: 06/10/21 08:33 Dose: 100 mg Documented by: Miscellaneous (Carbohydrates For Hypoglycemia ) 15 - 30 gm PO UD PRN PRN Reason: Hypoglycemia Protocol Stop: 07/07/21 16:14 Pantoprazole Sodium (Pantoprazole 40 Mg Tab) 40 mg PO BID [facility]; Protocol Stop: 07/07/21 20:59 Last Admin: 06/10/21 08:35 Dose: 40 mg Documented by: Pneumococcal Polyvalent Vaccine (Do Not Administer Pneumococcal Vaccine) 1 ea N/A PRN PRN PRN Reason: Notification Stop: 07/08/21 14:40 Polyethylene Glycol (Polyethylene (Miralax) 17 Gm Pack) 17 gm PO Q6 [facility] Stop: 07/09/21 05:59 Last Admin: 06/10/21 10:09 Dose: Not Given Documented by: Rosuvastatin Calcium (Rosuvastatin Calcium 10 Mg Tab) 10 mg PO QAM [facility] Stop: 07/08/21 08:59 Last Admin: 06/10/21 08:34 Dose: 10 mg Documented by: Senna/Docusate Sodium (Docusate Sodium/Senna 50/8.6mg Tab) 2 tab PO HS [facility] Stop: 07/08/21 20:59 Last Admin: 06/09/21 21:12 Dose: Not Given Documented by: Sodium Biphosphate/Sodium Phosphate (Sod Phosphate/Sod Biphosphate Enema 132 Ml Btl) 132 ml TX ONE PRN PRN Reason: Constipation Stop: 07/08/21 14:40 Telmisartan (Telmisartan 40 Mg Tab) 80 mg PO PM [facility] Stop: 07/08/21 16:59 Last Admin: 06/09/21 21:13 Dose: 80 mg Documented by: Tramadol HCl (Tramadol Hcl 50 Mg Tablet) 50 - 100 mg PO Q4H PRN PRN Reason: Moderate-Severe pain & Pre PT Stop: 07/08/21 14:40 Last Admin: 06/10/21 10:14 Dose: 100 mg Documented by:
== END 2021-06-10 13:53 | disposition home or self-care (01) | DRG 454 ==
LOC: ED 10:43 → 3E 15:04 → SUATTDRO 15:04 → 3E 16:05